=== PATIENT | female | born 1980 | race Caucasian/White ===

== ENCOUNTER 2023-01-05 16:08 | Emergency (ER) | payer MEDICAID, SELFPAY ==
[2023-01-05 16:09] VITALS: BP 117/92; PULSE 96; RESP 18; TEMP 36.6; O2SAT 100; BMI 25.1
--- NOTE | 2023-01-05 16:56 | EX.ED.DYSGE1 ---
HPI History of Present Illness Chief Complaint: Edema Informant: patient Narrative Narrative: Increasing facial swelling right lateral lip since yesterday. [place] a balm she is try manipulate throughout the day. There was yellow crusting and clear drainage. No fevers. She is currently staying at [facility] for the past month. States felt feverish yesterday. Denies IV drug use. Intermittent recreational drug use. Denies history of diabetes. [facility] Medical History (Updated 01/05/23 @ 18:[address] Julio Cesar Dunlap DO) Arthritis PTSD (post-traumatic stress disorder) Home Medications amoxicillin 875 mg-potassium clavulanate 125 mg tablet 875 mg PO Q12H #20 TABLETS 01/05/23 [Rx Last Taken Unknown] ibuprofen 600 mg tablet 600 mg PO Q6H PRN PRN pain #20 TABLETS 01/05/23 [Rx Last Taken Unknown] Allergy/AdvReac Type Severity Reaction Status Date / Time lactose Allergy Upset Verified 01/05/23 16:08 Stomach Social History Smoking Status: Current every day smoker tobacco type: cigarettes ROS ROS ED Constitutional Constitutional ED: Denies chills, fever(s) or sweats Eyes Eyes: Denies change in vision ENT ENT ED: Denies dysphagia or sore throat Cardiovascular Cardiovascular: Denies chest pain, leg edema, palpitations or racing heartbeat Respiratory/Chest Respiratory/Chest: Denies cough, dyspnea or dyspnea on exertion Gastrointestinal Gastrointestinal: Denies abdominal pain, diarrhea, nausea or vomiting Genitourinary Genitourinary ED: Denies dysuria, hematuria or urinary frequency Musculoskeletal Musculoskeletal: Denies back pain, extremity pain or neck pain Integumentary Reports abscess and wounds; Denies rash Neurologic Neurologic: Denies headache(s), paresthesias or weakness EXAM Physical Exam Const Vital Signs: 01/05/23 16:09 Temperature 97.8 F Temperature Source Temporal Pulse Rate 96 Respiratory Rate 18 Blood Pressure 117/92 H Blood Pressure Mean 100 Pulse Ox 100 Oxygen Delivery Method Room Air Positive well nourished and well developed General Appearance ED: well developed and NAD HEENT Reports moist mucous membranes HEENT Narrative: Facial right lateral lip 3 cm fluctuance with scabbing the middle this extends to the right lower lip with slight fluctuance in that area. There is no active drainage. No submental lymphadenopathy. normocephalic Eyes PERRL, EOMs intact bilaterally and conjunctivae normal General Eye ED: Yes normal appearance of both eyes Neck no lymphadenopathy and supple General: Negative for tenderness Chest Wall Chest: Negative for tenderness Resp normal respiratory effort and normal air movement Effort and Inspection: symmetric chest movement; Negative for respiratory distress Cardio regular rate, regular rhythm and no murmurs Peripheral Pulses: pulses 2+ throughout GI normal to inspection, nondistended, normoactive bowel sounds and non-tender Palpation: Negative for guarding or rebound tenderness present Back/Spine no CVA tenderness and no thoracic nor lumbar tenderness Extremity normal to inspection General Extremety ED: Negative for edema or tenderness General Extremity: Negative for edema Neuro oriented x3 and no sensory deficits noted Sensorium / Orientation: awake and alert Skin no rashes or lesions noted and no wounds MDM MDM MDM Narrative Medical decision making narrative: Interventions / MDM: Differential diagnosis: Facial cellulitis, impetigo, abscess Diagnosis considered but do not suspect: N/A My EKG interpretation: N/A Imaging independently reviewed and interpreted by myself: N/A External documents reviewed: N/A Test considered but not ordered:N/A ED course: Patient afebrile vital stable. Progressive swelling on the facial region area of scabbing yellow in nature concerning for impetigo that is progressed. She had fluctuance that is palpated. Due to the location, discussed with patient needle aspiration to help create tract to help with drainage. She agreed. Performed sterile conditions. 2 punctures performed, there is no exudative aspirated. She was covered with Augmentin. Also prescription for ibuprofen was written. Strict return precautions discussed. Outpatient follow-up given. All questions were answered. Re-evaluation: stable Disposition discussed with patient/family/significant other: Patient Case discussed with consulting clinician: N/A Procedure note: Verbal consent. Normal sterile conditions. Skin prepped with alcohol pads. A total of 3 cc lidocaine 2% used for local analgesia the wound lateral to the lip along with inferior to the lip. Betadine prep of the skin. 18-gauge needle entered at the scab lateral to the lip. Directions at 1210 and 8 o'clock position. There is no aspirates obtained. Additional puncture inferior right lower lip at 3:00 and 5 o'clock position, bloody drainage noted. No exudates. Hemostasis achieved with pressure. Patient tolerated procedure well. Discharge Plan Triage Chief Complaint: Edema ED Provider: Julio Cesar Dunlap Dx/Rx/DC Orders Clinical Impression: Cellulitis of face, Impetigo Instructions: Understanding Impetigo, ED Cellulitis, Facial Prescriptions: New ibuprofen 600 mg tablet 600 mg PO Q6H PRN PRN (Reason: pain) Qty: 20 0RF amoxicillin-pot clavulanate [amoxicillin-pot clavulanate] 875-125 mg tablet 875 mg PO Q12H Qty: 20 0RF Referrals: Noelle Islas [Non-Staff] - 1 Week Activity Restrictions/Additional Instructions: Take medications as prescribed. Return if any worsening symptoms. Disposition Disposition: Home, Self Care Discharge Date/Time: 01/05/23 18:32
[2023-01-05] MEDS: Amox/Clavulanate 875 MG Tablet PO (17:52)
[2023-01-05] MEDS: Lidocaine 2% (20 ml mdv) 20 ML Vial INFILT (18:24)
--- NOTE | 2023-01-05 18:24 | ED.RN ---
Pt states she is unable to get her prescriptions during this visit because she didn't bring any form of payment and does not have any family here with her. RN explained importance of getting and completing antibiotic and provided her with pharmacy hours for worm picker tomorrow. patient agreeable.
== END 2023-01-05 18:32 | disposition home or self-care (01) ==
PROVIDERS: Emergency Provider Emergency Medicine; Visit Provider Emergency Medicine
DX: L03.211 Cellulitis of face (principal); L01.00 Impetigo, unspecified; F17.210 Nicotine dependence, cigarettes, uncomplicated
CPT/HCPCS: J7030; 99284

== ENCOUNTER 2023-03-24 12:51 | Emergency (ER) | payer MEDICAID, SELFPAY ==
[2023-03-24 12:51] VITALS: BP 87/49; PULSE 58; RESP 18; O2SAT 99
[2023-03-24] MEDS: 0.9% Normal Saline 1,000 ML 1000 ML IV ×2 (12:51→15:27)
[2023-03-24 12:52] VITALS: TEMP 36.5; BMI 28.2
--- NOTE | 2023-03-24 13:09 | NURSING ---
NO OLD EKGS
--- NOTE | 2023-03-24 13:12 | ED.RN ---
ATTEMPTED TO CALL ELISSA HERNANDEZ AT [phone] BUT NO ANSWER
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
--- NOTE | 2023-03-24 13:22 | CT_ITS ---
STUDY: CT BRAIN WITHOUT CONTRAST REASON FOR EXAM: Female, 42 years old. Head trauma with incontinence RADIATION DOSAGE (If Supplied By Facility): CTDIvol = ( 44.99 ) mGy, DLP = ( 812.98 ) mGycm TECHNIQUE: Transaxial CT imaging of the brain was performed without administration of intravenous contrast material. Individualized dose optimization techniques were used for this CT. COMPARISON: No relevant priors. FINDINGS: Normal soft tissue structures. Normal calvarium. Normal size ventricles and extra-axial spaces for the patient''s age. Normal white matter tracts of the cerebral hemispheres. Normal basal ganglia and thalami. Normal brainstem. Normal cerebellum. There is no intracranial hemorrhage. There are no findings of an acute ischemic infarction. Minimal mucosal thickening of the left maxillary sinus. CT/Brain/Head without Contrast IMPRESSION: Normal unenhanced CT scan of the brain. Electronically Signed: Emiliano Branch MD at 14:14 EDT ,
--- NOTE | 2023-03-24 13:22 | CT_ITS ---
STUDY: CTA CHEST REASON FOR EXAM: Female, 42 years old. Syncope with cyanosis RADIATION DOSAGE (If Supplied By Facility): CTDIvol = ( 11.6 ) mGy, DLP = ( 1274.9 ) mGycm TECHNIQUE: The examination was performed with the intravenous administration of IV 100mL [id number]-370. Post-processing of the angiographic images was performed, with multiplanar reformation and 3D reconstruction. Individualized dose optimization techniques were used for this CT. COMPARISON: None. FINDINGS: Normal enhancement of the main pulmonary artery and right and left pulmonary arteries. Normal enhancement of the bilateral peripheral pulmonary arteries. There is no demonstrated pulmonary embolism. Normal thoracic aorta and visualized great vessels. There is no demonstrated aortic dissection. Normal heart and pericardium. Normal mediastinum. Normal hilar regions. Normal visualized trachea and bronchi. The lungs are well expanded. Normal pulmonary parenchyma. Normal pleura. Normal chest wall structures. There are mild degenerative changes of thoracic spine. Tiny nonobstructive calculi seen in both upper poles of the kidneys. CT/CTA Chest W/WO Contrast IMPRESSION: Normal CTA chest examination, without a demonstrated pulmonary embolism or arterial dissection. Electronically Signed: Emiliano Branch MD at 14:20 EDT ,
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
[2023-03-24 13:25] LABS: Absolute Lymphocyte Count 2.03 X10^3/uL (0.83-4.51); Absolute Neutrophil Count 3.6 X10^3/uL (2.0-7.7); Basophil# 0.07 X10^3/uL; Basophil% 1.1 % (0-1); Eosinophil# 0.04 X10^3/uL; Eosinophils% 0.6 % (0-5); Hematocrit 41.5 % (37-47); Hemoglobin 13.9 g/dL (12.0-15.0); Lymphocyte # 2.03 X10^3/ul (0.83-4.51); Lymphocyte % 32.5 % (19-41); Mean Corp Hgb Conc 33.5 g/dL (32-36); Mean Corpuscular Hgb 31.4 pg (27.0-32.0); Mean Corpuscular Volume 93.9 fL (81-99); Mean Platelet Vol. 10.9 fl (6.2-12.0); Monocyte# 0.44 X10^3/uL; Monocyte% 7.1 % (0-10); NRBC Flagged by Analyzer 0 % (0-5); Neutrophil # 3.63 X10^3/uL (2.7-7.7); Neutrophil % 58.2 % (47-70); Platelet Count 266 K/mm3 (150-450); RBC Distribution Width CV 14.9 % (11.6-14.6); RBC Distribution Width SD 51.6 fl (35.1-43.9); Red Blood Count 4.42 M/mm3 (4.2-5.4); White Blood Count 6.2 K/mm3 (4.4-11.0)
[2023-03-24 13:41] LABS: Anion Gap 10 (5-15); BUN 13 mg/dL (7-18); BUN/Creat Ratio 11.7 RATIO (10-20); Calcium,Total 8.9 mg/dL (8.5-10.1); Chloride 114 mmol/L (98-107); Creatinine, Serum 1.11 mg/dL (0.55-1.02); EST Glomerular Filtration Rate 57 mL/min (>60); Est Glom Filt Rate - Afr Amer 69 mL/min (>60); Estimated Creatinine Clearance 67.59 ml/min; Glucose 125 mg/dL (74-106); Sodium Level 141 mmol/L (136-145)
[2023-03-24 14:13] VITALS: BP 101/70; PULSE 66; RESP 20; O2SAT 100
[2023-03-24 16:16] VITALS: BP 106/74; BP 106/84; BP 95/59; PULSE 70; PULSE 95
[2023-03-24 16:49] VITALS: BP 111/78
== END 2023-03-24 16:50 | disposition home or self-care (01) ==
PROVIDERS: Emergency Provider Emergency Medicine; Visit Provider Emergency Medicine
DX: R55 Syncope and collapse (principal); S09.90XA Unspecified injury of head, initial encounter; I95.9 Hypotension, unspecified; R00.1 Bradycardia, unspecified; W10.9XXA Fall (on) (from) unspecified stairs and steps, initial encounter
CPT/HCPCS: 70450; 71275; 80048; 85025; 93005; 96360; 96361; 99285; J7030; Q9967

== ENCOUNTER 2023-05-14 14:38 | Emergency (ER) | payer MEDICAID, SELFPAY ==
[2023-05-14] VITALS (11 sets, daily range): BP systolic 89–107; BP diastolic 58–71; PULSE 64–76; RESP 15–26; TEMP 35.9; O2SAT 92–100; BMI 27.8
--- NOTE | 2023-05-14 15:03 | EX.ED.DYSGE1 ---
HPI History of Present Illness Chief Complaint: Overdose Detail of Chief Complaint: Ingestion Informant: patient Narrative Narrative: Patient presents after drug ingestion. She states she found her girlfriend with some preethi. She was upset and took a bag of drugs from his supply and snorted it. She is not sure what the drug is. She believes this occurred about an hour ago. She states she does not know who called EMS and has not remember anything until squad arrived. At this time she is complaining only of being thirsty. She admits to occasional alcohol use but none today. She does admit to meth use a couple days ago. Nursing staff did update me that EMS did give her Narcan. I did review the EMS note. Patient reportedly was apneic but had a strong pulse. She had been given 2 mg of Narcan nasally by police followed by 2 mg of Narcan nasally by EMS. She was bagged until IV was established and patient given IV Narcan. Following this she did awake and was able to answer questions. Patient denies that this was an attempt to harm herself. She states she was just upset but had no intention of hurting herself. [facility] Medical History Anxiety Arthritis PTSD (post-traumatic stress disorder) Home Medications amoxicillin 875 mg-potassium clavulanate 125 mg tablet 875 mg PO Q12H #20 TABLETS 01/05/23 [Rx Last Taken Unknown] ibuprofen 600 mg tablet 600 mg PO Q6H PRN PRN pain #20 TABLETS 01/05/23 [Rx Last Taken Unknown] Allergy/AdvReac Type Severity Reaction Status Date / Time lactose Allergy Upset Verified 05/14/23 14:39 Stomach Surgical History H/O foot surgery Social History (Updated 05/14/23 @ 15:[address] Lexy Carlisle MD) household members: significant other Smoking Status: Current every day smoker tobacco type: cigarettes details: Not recently. substance use type: marijuana and methamphetamine ROS ROS ED Constitutional Constitutional ED: Denies chills or fever(s) Eyes Eyes: Denies change in vision or discharge from eye(s) ENT ENT ED: Denies discharge from eye(s), rhinorrhea or sore throat Cardiovascular Cardiovascular: Denies chest pain or palpitations Respiratory/Chest Respiratory/Chest: Denies cough or dyspnea Gastrointestinal Gastrointestinal: Denies abdominal pain, nausea or vomiting Genitourinary Genitourinary ED: Denies dysuria Musculoskeletal Musculoskeletal: Denies back pain or extremity pain Integumentary Denies Abrasions or rash Neurologic Neurologic: Denies headache(s) or weakness Psychiatric Psychiatric: Reports anxiety; Denies depression Allergic/Immunologic Allergic/Immunologic ED: Denies lip swelling or urticaria EXAM Physical Exam Const Vital Signs: 05/14/23 14:41 05/14/23 16:45 05/14/23 17:15 Temperature 96.7 F L Temperature Source Temporal Pulse Rate 74 76 64 Respiratory Rate 19 H 21 H 26 H Blood Pressure 107/71 100/61 89/60 L Blood Pressure Mean 83 74 69 Pulse Ox 100 99 95 Oxygen Delivery Method Room Air 05/14/23 17:30 05/14/23 17:45 05/14/23 18:00 Temperature Temperature Source Pulse Rate 65 64 Respiratory Rate 24 H 26 H Blood Pressure 92/61 91/58 L 91/60 Blood Pressure Mean 71 69 70 Pulse Ox 94 93 Oxygen Delivery Method 05/14/23 18:15 05/14/23 20:44 05/14/23 21:25 Temperature Temperature Source Pulse Rate 66 Respiratory Rate 20 H Blood Pressure 94/59 L 97/67 94/62 Blood Pressure Mean 70 77 72 Pulse Ox 92 Oxygen Delivery Method Room Air Positive well nourished and well developed General Appearance ED: well developed HEENT HEENT Narrative: A few facial abrasions noted consistent with skin picking. No sign of secondary infection. Eyes PERRL and EOMs intact bilaterally Chest Wall inspection of chest normal and palpation of chest normal Resp normal respiratory effort and clear to auscultation bilaterally Cardio regular rate and regular rhythm GI non-tender Palpation: soft Extremity normal to inspection Neuro oriented x3 Neuro Narrative: No focal neurologic deficits. Psych Mood & Affect: depressed Skin Skin Narrative: Few scattered skin scabbed wounds noted from picking. No sign of secondary infection. No cellulitis or abscess. MDM MDM MDM Narrative Medical decision making narrative: Patient placed on telemetry monitor. EKG obtained to evaluate for cardiac arrhythmia/ischemia. Labwork obtained to evaluate for leukocytosis, anemia, and electrolyte derangement. Urinalysis obtained to evaluate for infection/hematuria. Urine tox screen obtained. Patient is given IV fluids. Lab Data Attestation: I reviewed the patient's lab results. Labs: Laboratory Results - last 24 hr 05/14/23 05/14/23 05/14/23 15:25 15:25 15:25 WBC 25.5 H RBC 4.21 Hgb 13.5 Hct 40.9 MCV 97.1 MCH 32.1 H MCHC 33.0 RDW Std Deviation 45.5 H RDW Coeff of Grace 12.7 Plt Count 245 MPV 10.1 Immature Gran % (Auto) 1.100 H Neut % (Auto) 92.1 H Lymph % (Auto) 2.6 L [place] % (Auto) 3.7 Eos % (Auto) 0.2 Baso % (Auto) 0.3 Absolute Neuts (auto) 23.5 H Absolute Lymphs (auto) 0.67 L Nucleated RBC % 0 Differential Comment SCANNED Sodium 139 Potassium 4.9 Chloride 111 H Carbon Dioxide 22.0 Anion Gap 6 BUN 17 Creatinine 1.30 H Estim Creat Clear Calc 57.71 Est GFR (MDRD) Af Amer 57 L Est GFR (MDRD) Non-Af 47 L BUN/Creatinine Ratio 13.1 Glucose 224 H Lactic Acid Calcium 8.4 L Total Bilirubin 0.40 Direct Bilirubin 0.16 AST 43 H ALT 32 Alkaline Phosphatase 61 Total Protein 7.5 Albumin 3.8 Globulin 3.7 Serum , Qual Urine Color Urine Clarity Urine pH Ur Specific [place] Urine Protein Urine Glucose (UA) Urine Ketones Urine Occult Blood Urine Nitrite Urine Bilirubin Urine Urobilinogen Ur Leukocyte Esterase Urine RBC Urine WBC Ur Squamous Epith Cells Urine Bacteria Hyaline Casts Urine Mucus Urine Opiates Screen Urine Methadone Screen Ur Barbiturates Screen Ur Phencyclidine Scrn Ur Amphetamines Screen MDMA (Ecstasy) Screen U Benzodiazepines Scrn Urine Cocaine Screen U Cannabinoids Screen Ur Drug Screen Comment Ethyl Alcohol 7.0 05/14/23 05/14/23 05/14/23 15:55 18:45 18:45 WBC RBC Hgb Hct MCV MCH MCHC RDW Std Deviation RDW Coeff of Grace Plt Count MPV Immature Gran % (Auto) Neut % (Auto) Lymph % (Auto) [place] % (Auto) Eos % (Auto) Baso % (Auto) Absolute Neuts (auto) Absolute Lymphs (auto) Nucleated RBC % Differential Comment Sodium Potassium Chloride Carbon Dioxide Anion Gap BUN Creatinine Estim Creat Clear Calc Est GFR (MDRD) Af Amer Est GFR (MDRD) Non-Af BUN/Creatinine Ratio Glucose Lactic Acid Calcium Total Bilirubin Direct Bilirubin AST ALT Alkaline Phosphatase Total Protein Albumin Globulin Serum , Qual NEGATIVE Urine Color Yellow Urine Clarity Sl. Cloudy Urine pH 5.0 Ur Specific [place] 1.025 Urine Protein 30 H Urine Glucose (UA) 250 H Urine Ketones 5 H Urine Occult Blood 10 H Urine Nitrite Negative Urine Bilirubin Negative Urine Urobilinogen 1 H Ur Leukocyte Esterase 25 H Urine RBC 0 SEEN Urine WBC 0-5 SEEN Ur Squamous Epith Cells 5-10 SEEN Urine Bacteria 0 SEEN Hyaline Casts 10-25 SEEN Urine Mucus 1+ Urine Opiates Screen NEGATIVE Urine Methadone Screen NEGATIVE Ur Barbiturates Screen NEGATIVE Ur Phencyclidine Scrn NEGATIVE Ur Amphetamines Screen POSITIVE H MDMA (Ecstasy) Screen NEGATIVE U Benzodiazepines Scrn NEGATIVE Urine Cocaine Screen NEGATIVE U Cannabinoids Screen POSITIVE H Ur Drug Screen Comment Ethyl Alcohol 05/14/23 05/14/23 21:25 21:25 WBC 17.4 H RBC 3.78 L Hgb 12.0 Hct 36.4 L MCV 96.3 MCH 31.7 MCHC 33.0 RDW Std Deviation 45.2 H RDW Coeff of Grace 12.7 Plt Count 233 MPV 10.2 Immature Gran % (Auto) 0.600 Neut % (Auto) 92.3 H Lymph % (Auto) 4.0 L [place] % (Auto) 2.9 Eos % (Auto) 0.0 Baso % (Auto) 0.2 Absolute Neuts (auto) 16.1 H Absolute Lymphs (auto) 0.69 L Nucleated RBC % 0 Differential Comment Sodium Potassium Chloride Carbon Dioxide Anion Gap BUN Creatinine Estim Creat Clear Calc Est GFR (MDRD) Af Amer Est GFR (MDRD) Non-Af BUN/Creatinine Ratio Glucose Lactic Acid 0.6 Calcium Total Bilirubin Direct Bilirubin AST ALT Alkaline Phosphatase Total Protein Albumin Globulin Serum , Qual Urine Color Urine Clarity Urine pH Ur Specific [place] Urine Protein Urine Glucose (UA) Urine Ketones Urine Occult Blood Urine Nitrite Urine Bilirubin Urine Urobilinogen Ur Leukocyte Esterase Urine RBC Urine WBC Ur Squamous Epith Cells Urine Bacteria Hyaline Casts Urine Mucus Urine Opiates Screen Urine Methadone Screen Ur Barbiturates Screen Ur Phencyclidine Scrn Ur Amphetamines Screen MDMA (Ecstasy) Screen U Benzodiazepines Scrn Urine Cocaine Screen U Cannabinoids Screen Ur Drug Screen Comment Ethyl Alcohol EKG Initial EKG: Attestation: I personally reviewed and interpreted this EKG as follows: Interpretation: Sinus Rhythm (Sinus at 70 with no acute ischemia. QTc is 488.) Treatment and Re-Evaluation :: White blood cell count elevated at 25.5 with 92% neutrophils. Hemoglobin normal at 13.5. Chemistry studies remarkable only for a creatinine of 1.3. Her glucose is 224. LFTs significant for an AST of 43, otherwise values are normal. test is negative. Urinalysis reveals 10-25 casts with no sign of infection. Urine tox screen is positive for amphetamines as well as cannabinoids. Patient's blood pressure remained in the 80s and 90s systolic. She is not tachycardic. Although she tells me that she normally has a normal blood pressure, on review of records her blood pressure has been in the 80s and 90s her last couple visits. After receiving IV fluids a repeat CBC is obtained along with a lactic acid. White count is now 17.4 with a hemoglobin of 12. Lactic acid is normal at 0.6. Patient is able to get up and ambulate in the emergency room. She does report some slight dizziness when she ambulates. At this point she has been observed for over 7 hours and I do feel it is safe for discharge. Return instructions were provided. Patient encouraged to avoid any drug use and push p.o. fluids. Discharge Plan Triage Chief Complaint: Overdose ED Provider: Lexy Carlisle Dx/Rx/DC Orders Clinical Impression: Acute drug overdose Instructions: ED Overdose, Opiate Prescriptions: No Action ibuprofen 600 mg tablet 600 mg PO Q6H PRN PRN (Reason: pain) Qty: 20 0RF amoxicillin-pot clavulanate [amoxicillin-pot clavulanate] 875-125 mg tablet 875 mg PO Q12H Qty: 20 0RF Primary Care Provider: ALIX READ Referrals: ALIX READ [Other] - 5-7 Days Care Physician,No Primary [Non-Staff] - [facility] [Non-Staff] - As Needed Disposition Disposition: Home, Self Care
[2023-05-14] MEDS: 0.9% Normal Saline 1,000 ML 150 ML IV (15:22)
[2023-05-14 15:34] LABS: Absolute Lymphocyte Count 0.67 X10^3/uL (0.83-4.51); Absolute Neutrophil Count 23.5 X10^3/uL (2.0-7.7); Basophil# 0.08 X10^3/uL; Basophil% 0.3 % (0-1); Eosinophil# 0.05 X10^3/uL; Eosinophils% 0.2 % (0-5); Hematocrit 40.9 % (37-47); Hemoglobin 13.5 g/dL (12.0-15.0); Lymphocyte # 0.67 X10^3/ul (0.83-4.51); Lymphocyte % 2.6 % (19-41); Mean Corpuscular Hgb 32.1 pg (27.0-32.0); Mean Corpuscular Volume 97.1 fL (81-99); Mean Platelet Vol. 10.1 fl (6.2-12.0); Monocyte# 0.94 X10^3/uL; Monocyte% 3.7 % (0-10); NRBC Flagged by Analyzer 0 % (0-5); Neutrophil # 23.45 X10^3/uL (2.7-7.7); Neutrophil % 92.1 % (47-70); POSITIVE DIFFERENTIAL YES; Platelet Count 245 K/mm3 (150-450); RBC Distribution Width CV 12.7 % (11.6-14.6); RBC Distribution Width SD 45.5 fl (35.1-43.9); Red Blood Count 4.21 M/mm3 (4.2-5.4); White Blood Count 25.5 K/mm3 (4.4-11.0)
[2023-05-14 15:51] LABS: AST(SGOT) 43 U/L (15-37); Alanine Aminotransfer ALT/SGPT 32 U/L (13-56); Albumin, Serum 3.8 g/dL (3.2-5.0); Alkaline Phosphatase 61 U/L (45-117); Anion Gap 6 (5-15); BUN 17 mg/dL (7-18); BUN/Creat Ratio 13.1 RATIO (10-20); Bilirubin, Direct 0.16 mg/dL (0.00-0.30); Calcium,Total 8.4 mg/dL (8.5-10.1); Chloride 111 mmol/L (98-107); EST Glomerular Filtration Rate 47 mL/min (>60); Est Glom Filt Rate - Afr Amer 57 mL/min (>60); Estimated Creatinine Clearance 57.71 ml/min; Globulin 3.7 g/dL (2.2-4.2); Glucose 224 mg/dL (74-106); Potassium 4.9 mmol/L (3.5-5.1); Protein, Total 7.5 g/dL (6.4-8.2); Sodium Level 139 mmol/L (136-145)
[2023-05-14 15:59] LABS: Differential Indicated SCAN CRITERIA MET
[2023-05-14 16:22] LABS: Differential Comment SCANNED
[2023-05-14 16:36] LABS: Internal QC Validated? YES +Cl - CLEAR BKGD; Pregnancy, Serum, hCG Quali. NEGATIVE Negative
[2023-05-14 18:52] LABS: Bacteria 0 SEEN /hpf (None Seen); Red Blood Cells-Urine 0 SEEN /hpf (0-5)
[2023-05-14 19:06] LABS: Color, Urine Yellow (Yellow); Glucose, Dipstick 250 mg/dl (Normal); Ketone-Dipstick 5 mg/dl (Negative); Leukocyte Esterase-Dipstick 25 /ul (Negative); Nitrite-Dipstick Negative (Negative); Occult Blood-Urine 10 /ul (Negative); Protein-Dipstick 30 mg/dl (Negative); Specific Gravity, Urine 1.025 (1.002-1.030); Urine Bilirubin Dipstick Negative (Negative); Urine Clarity Sl. Cloudy (Clear); Urine Urobilinogen 1 mg/dl (Normal)
[2023-05-14 19:19] LABS: Hyaline Cast 10-25 SEEN /lpf (0-5); Mucous, Urine 1+ /hpf (<or=2+); Squamous Epithelial Cells - UA 5-10 SEEN /hpf (5-10); White Blood Cells 0-5 SEEN /hpf (0-5)
[2023-05-14] MEDS: 0.9% Normal Saline 1,000 ML 999 ML IV (19:39)
[2023-05-14 19:41] LABS: Amphetamine Urine VISTA POSITIVE (<1000 ng/mL); Barbiturate Urine VISTA NEGATIVE (< 200 ng/mL); Benzodiazepine Urine VISTA NEGATIVE (< 200 ng/mL); Cocaine Urine VISTA NEGATIVE (< 300 ng/mL); Ecstacy Urine VISTA NEGATIVE (< 500 ng/mL); Methadone Urine VISTA NEGATIVE (< 300 ng/mL); PCP Urine VISTA NEGATIVE (< 25 ng/mL); THC Urine VISTA POSITIVE (< 50 ng/mL); Vista UDS pH Range 4
[2023-05-14 21:32] LABS: Absolute Lymphocyte Count 0.69 X10^3/uL (0.83-4.51); Absolute Neutrophil Count 16.1 X10^3/uL (2.0-7.7); Basophil# 0.04 X10^3/uL; Basophil% 0.2 % (0-1); Hematocrit 36.4 % (37-47); Lymphocyte # 0.69 X10^3/ul (0.83-4.51); Mean Corpuscular Hgb 31.7 pg (27.0-32.0); Mean Corpuscular Volume 96.3 fL (81-99); Mean Platelet Vol. 10.2 fl (6.2-12.0); Monocyte% 2.9 % (0-10); NRBC Flagged by Analyzer 0 % (0-5); Neutrophil # 16.11 X10^3/uL (2.7-7.7); Neutrophil % 92.3 % (47-70); Platelet Count 233 K/mm3 (150-450); RBC Distribution Width CV 12.7 % (11.6-14.6); RBC Distribution Width SD 45.2 fl (35.1-43.9); Red Blood Count 3.78 M/mm3 (4.2-5.4); White Blood Count 17.4 K/mm3 (4.4-11.0)
[2023-05-14 22:01] LABS: Lactic Acid 0.6 mmol/L (0.4-1.9)
== END 2023-05-14 23:03 | disposition home or self-care (01) ==
PROVIDERS: Emergency Provider Emergency Medicine; Visit Provider Emergency Medicine
DX: T65.892A Toxic effect of other specified substances, intentional self-harm, initial encounter (principal); F17.210 Nicotine dependence, cigarettes, uncomplicated; F12.90 Cannabis use, unspecified, uncomplicated
CPT/HCPCS: 80048; 80076; 80307; 81001; 82077; 83605; 84703; 85025; 93005; 96360; 96361; 99285; J7030; A4216

== ENCOUNTER 2023-06-22 10:39 | Emergency (ER) | payer MEDICAID, SELFPAY ==
[2023-06-22 10:40] VITALS: BP 122/83; PULSE 57; RESP 14; TEMP 36.6; O2SAT 100; BMI 28.0
--- NOTE | 2023-06-22 11:05 | RAD_ITS ---
STUDY: X-RAY - LEFT FOOT CLINICAL: Female, 42 years old. Stepped on foreign body. Abrasions overlying the second and third metatarsals. TECHNIQUE: 3 view(s) of the foot. COMPARISON: None. FINDINGS: There is a plantar calcaneal spur. Normal visualized subtalar, talonavicular, calcaneocuboid, tarsal and tarsometatarsal articulations. Normal metatarsi. Normal metatarsophalangeal joint of the great toe. There is a bipartite tibial sesamoid. Normal interphalangeal joint of the great toe. Normal phalanges of the great toe. Normal second through fifth metatarsophalangeal joints. Normal interphalangeal joints and phalanges of the lesser toes. No radiopaque foreign body is seen. RAD/Foot min 3 Views IMPRESSION: Small plantar spur. No acute abnormality is seen. Electronically Signed: Emiliano Branch MD at 12:21 EDT ,
--- NOTE | 2023-06-22 11:16 | ED.VIS.LOWEX ---
HPI History of Present Illness Chief Complaint: Lower Extremity Injury Informant: patient Narrative Narrative: Patient is a 42-year-old female presenting with left foot injury. Patient states she was wearing socks when she stepped on a bolt yesterday. It did cut the bottom of her foot. She had pain and it hard for her to ambulate. She came via EMS with her partner who is also being evaluated for another complaint. Patient states she took 3 pain reliever which is [id number] [employer] medication is not sure what it actually was this morning. She is unsure when her last tetanus was. She states that [place] and is pretty dirty so she is concerned about tetanus. 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 Denies any numbness or tingling. [place] any fever or chills. No other complaints at this time Tetanus Immunization: Unknown [facility] Medical History Anxiety Arthritis PTSD (post-traumatic stress disorder) Home Medications amoxicillin 875 mg-potassium clavulanate 125 mg tablet 875 mg (0.875 x 875-125 mg) PO Q12H #20 TABLETS 01/05/23 [Rx Last Taken Unknown] ibuprofen 600 mg tablet 600 mg PO Q6H PRN PRN pain #20 TABLETS 01/05/23 [Rx Last Taken Unknown] bacitracin 500 unit/gram topical ointment 1 applic topical TID 7 days #14 grams 06/22/23 [Rx Last Taken Unknown] Allergy/AdvReac Type Severity Reaction Status Date / Time lactose Allergy Upset Verified 06/22/23 10:39 Stomach Surgical History H/O foot surgery Social History household members: significant other Smoking Status: Current every day smoker tobacco type: cigarettes details: Not recently. substance use type: marijuana and methamphetamine ROS ROS ED Constitutional Constitutional ED: Denies chills or fever(s) Respiratory/Chest Respiratory/Chest: Denies cough Gastrointestinal Gastrointestinal: Denies nausea or vomiting Musculoskeletal Musculoskeletal: Reports other Details: left foot pain Integumentary Reports other Details: Left foot wound Neurologic Neurologic: Denies headache(s), paresthesias or weakness Psychiatric Psychiatric: Denies anxiety Hematologic/Lymphatic Hematologic/Lymphatic: Denies easy bleeding or easy bruising EXAM Physical Exam Const Vital Signs: 06/22/23 10:40 Temperature 97.8 F Temperature Source Temporal Pulse Rate 57 L Respiratory Rate 14 Blood Pressure 122/83 H Blood Pressure Mean 96 Pulse Ox 100 Oxygen Delivery Method Room Air Positive well nourished and well developed General Appearance ED: well developed and NAD HEENT Reports moist mucous membranes Neck full ROM Chest Wall inspection of chest normal Resp normal respiratory effort and clear to auscultation bilaterally Cardio regular rate and regular rhythm Cardio Narrative: 2+ DP pulses Extremity normal to inspection and full ROM Extremity Narrative: No deformity, tenderness to palpation of the plantar aspect of the second and third MTP (underlying superficial abrasion) Neuro oriented x3, moves all extremities and no sensory deficits noted Sensorium / Orientation: alert Motor Exam: strength 5/5 throughout; Negative for general weakness Psych mental status grossly normal Skin Skin Narrative: 1 cm partial-thickness healing laceration of the dorsal aspect of the foot just proximal to the second/third toes. No active bleeding, drainage or cellulitic changes. MDM MDM MDM Narrative Medical decision making narrative: Evaluated for injury to the base of her left foot. She has a an associated abrasion it does appear to be partial-thickness however it is not amenable to suture repair as has been there for too long. It is not particularly gaping. Does not appear infected. Do not think requires antibiotics at this time. X-rays performed to rule out any underlying fracture or foreign body. This is negative on my interpretation as well as radiology. She does have a small plantar spur however this not why she is here. Physical exam is not consistent for puncture wound even though she did stepped on a bolt. Localized wound care with bacitracin dressing applied. Patient given wound care instructions. Is given podiatry for outpatient follow-up. Given return precautions. Is given a postop shoe. Patient verbalized agreement understands plan. Discharged home in stable condition. Radiography Diagnostic Testing: Clinical Impression(s) from Imaging Studies Foot X-Ray 06/22/23 11:05 IMPRESSION: Small plantar spur. No acute abnormality is seen. Electronically Signed: Emiliano Branch MD at 12:21 EDT , Discharge Plan Triage Chief Complaint: Lower Extremity Injury ED Provider: Renetta Hernandez Dx/Rx/DC Orders Clinical Impression: Need for Tdap vaccination, Injury of foot, right, superficial Instructions: ED Abrasion, ED Foot Contusion Prescriptions: New bacitracin 500 unit/gram ointment 1 applic topical TID 7 Days Qty: 14 0RF No Action ibuprofen 600 mg tablet 600 mg PO Q6H PRN PRN (Reason: pain) Qty: 20 0RF amoxicillin-pot clavulanate [amoxicillin-pot clavulanate] 875-125 mg tablet 875 mg PO Q12H Qty: 20 0RF Primary Care Provider: ALIX READ Referrals: ALIX READ [Other] Doc Cox DPM [Med Staff - Active Staff] - 2 Days for wound check Activity Restrictions/Additional Instructions: Apply antibiotic as prescribed. Follow-up with podiatry. Return the if you have progression or worsening of symptoms. Watch for signs of infection and if you do develop these please return to the emergency room. Disposition Disposition: Home, Self Care
[2023-06-22] MEDS: Diphth,Pertuss(Acell),Tet Vac 0.5 ML Vial IM (12:37)
[2023-06-22] MEDS: BACITRACIN 15 GM Tube 1 APPLIC TOPICAL (13:37)
== END 2023-06-22 13:37 | disposition home or self-care (01) ==
PROVIDERS: Emergency Provider Emergency Medicine; Visit Provider Emergency Medicine
DX: S91.312A Laceration without foreign body, left foot, initial encounter (principal); W26.8XXA Contact with other sharp object(s), not elsewhere classified, initial encounter; F17.210 Nicotine dependence, cigarettes, uncomplicated; Z23 Encounter for immunization
CPT/HCPCS: 73630; 90715; 99285

== ENCOUNTER 2023-12-18 14:03 | Emergency (ER) | payer MEDICAID, SELFPAY ==
[2023-12-18 14:04] VITALS: BP 102/67; PULSE 59; RESP 18; TEMP 35.9; O2SAT 100; BMI 23.3
--- NOTE | 2023-12-18 14:24 | RAD_ITS ---
INDICATION: chest pain EXAMINATION/TECHNIQUE: X-RAY - XR Chest 1 View COMPARISON: No relevant prior comparison study available FINDINGS: LINES/DEVICES: None. LUNGS: No consolidation, edema or effusion. No pneumothorax. MEDIASTINUM AND CARDIOVASCULAR STRUCTURES: Cardiac silhouette not enlarged. Central airways and mediastinal contour are unremarkable. BONES AND SOFT TISSUES: Unremarkable. RAD/Chest 1 View (Portable) IMPRESSION: No radiographic evidence of acute cardiopulmonary disease. Electronically Signed: Nella Elena MD at 15:47 EST ,
--- NOTE | 2023-12-18 14:32 | EX.ED.DYSGE1 ---
HPI History of Present Illness Chief Complaint: Syncope Informant: patient Onset/Context/Timing Onset: Days Timing: Intermittent Current Severity: Mild Maximum Severity: Mild Narrative Narrative: 43-year-old female history of anxiety. On evening she stood up and a syncopal episode. Said she fell on the hardwood floor. Said she was told she was out because this was witnessed for about 2 to 3 minutes. She has had syncopal episodes before without specific diagnosis. States that she has had diarrhea for the last 2 to 3 days. No vomiting. No fever. No significant cough or shortness of breath. No head ache. Prior similar symptoms: Yes Recent Illness/Hospitalization: No PFSH PFSH Medical History Anxiety Arthritis PTSD (post-traumatic stress disorder) Home Medications aripiprazole 20 mg tablet (Abilify) 40 mg PO DAILY 12/18/23 [History Last Taken Unknown] clonazepam 1 mg tablet 1 mg PO DAILY 12/18/23 [History Last Taken Unknown] Allergy/AdvReac Type Severity Reaction Status Date / Time lactose Allergy Upset Verified 12/18/23 14:04 Stomach Surgical History H/O foot surgery Social History household members: significant other Smoking Status: Current every day smoker tobacco type: cigarettes details: Not recently. substance use type: marijuana and methamphetamine ROS ROS ED ROS Narrative Diarrhea. Syncope. Review of Systems ROS Unobtainable: Denies due to encephalopathy Constitutional Constitutional ED: Denies chills or fever(s) Eyes Eyes: Denies blurry vision ENT ENT ED: Denies ear pain Cardiovascular Cardiovascular: Denies chest pain Respiratory/Chest Respiratory/Chest: Denies cough or dyspnea Gastrointestinal Gastrointestinal: Reports diarrhea; Denies abdominal pain, constipation, melena, nausea or vomiting Genitourinary Genitourinary ED: Denies dysuria or hematuria Musculoskeletal Musculoskeletal: Denies arthralgias, back pain, myalgias or neck pain Integumentary Denies abscess or Abrasions Neurologic Neurologic: Denies headache(s) Psychiatric Psychiatric: Reports anxiety Endocrine Endocrinology: Denies cold intolerance or heat intolerance Hematologic/Lymphatic Hematologic/Lymphatic: Reports none Allergic/Immunologic Allergic/Immunologic ED: Denies mouth swelling, tongue swelling, urticaria or other EXAM Physical Exam Narrative Exam Narrative: Well-appearing 43-year-old female. Vital signs are stable initial blood pressure 102/67 but she is a thin female. She is afebrile. Her pulse ox 9% on room air no signs hypoxia. H EENT exam is round reactive light extra motions are intact. No signs of trauma to her face or scalp. No hematoma or tenderness. Mild dry mucous membranes. Neck nontender trachea midline. Lungs clear to auscultation bilaterally. Heart regular rhythm rate about 60 no murmur. Chest wall and ribs nontender. Abdomen soft nontender. Nondistended. Pelvic girdle intact. Moving all 4 extremities. Nontender. No deformity. 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 Normal range of motion both upper extremities. Normal dorsi and plantarflexion bilaterally. Normal flexion extension of both hips, knees and ankles. No deformity. No shortening or rotation. Back nontender. Neurologically she is awake and alert. Answer questions following commands. She knows day of the week month and year. Const Vital Signs: 12/18/23 14:04 12/18/23 14:29 12/18/23 14:39 Temperature 96.6 F L Temperature Source Temporal Pulse Rate 59 L Respiratory Rate 18 Respiratory Pattern Normal Blood Pressure 102/67 Blood Pressure Mean 78 Pulse Ox 100 Oxygen Delivery Method Room Air Room Air 12/18/23 14:51 Temperature Temperature Source Pulse Rate 59 L Respiratory Rate 15 Respiratory Pattern Blood Pressure 99/68 Blood Pressure Mean 78 Pulse Ox 100 Oxygen Delivery Method Nasal Cannula Positive well nourished and well developed; Negative for obese, cachectic, contractures or unkempt General Appearance ED: well developed and NAD; Negative for unkempt, cachectic, contractures, cyanotic, diaphoretic or pallor Nutritional Appearance: Negative for cachectic or obese HEENT Reports TM's clear and dry mucous membranes; Denies moist mucous membranes Negative for trauma or tenderness Tympanic Membrane ED: Yes TM's clear Mouth ED: Yes dry mucous membranes Mouth: dry mucous membranes Eyes PERRL and EOMs intact bilaterally General Eye ED: Negative for pale conjunctiva or scleral icterus Neck no lymphadenopathy, supple and no JVD General: Negative for tenderness Lymph Lymphatic: Negative for other Chest Wall inspection of chest normal and palpation of chest normal Chest: Negative for other Resp normal respiratory effort and clear to auscultation bilaterally Effort and Inspection: Negative for retractions Auscultation: Negative for rales, rhonchi or wheezes Cardio regular rhythm, S1 normal heart sound, S2 normal heart sound and no murmurs Rate: Negative for bradycardia or tachycardic Rhythm: Negative for abnormal rhythm GI normal to inspection, nondistended, normoactive bowel sounds, non-tender, non-distended and no masses; Negative for hepatosplenomegaly Inspection: Negative for abdominal distention Auscultation: normoactive bowel sounds Palpation: soft; Negative for tender, guarding, mass or rebound tenderness present Back/Spine no CVA tenderness General Back: Negative for CVA tenderness Cervical Spine: Negative for cervical spine tenderness Thoracic Spine / Upper Back: Negative for thoracic spinal tenderness or paraspinal muscle tenderness Lumbar Spine / Lower Back: Negative for lumbar spinal tenderness Extremity normal to inspection General Extremety ED: Negative for edema or tenderness General Extremity: Negative for edema Neuro oriented x3 and CN's II-XII intact bilaterally Sensorium / Orientation: alert; Negative for orientation impaired, lethargic or stuporous Motor Exam: strength 5/5 throughout; Negative for general weakness or strength abnormal Psych mental status grossly normal Appearance: Negative for unkempt Attitude: No agitated Mood & Affect: Negative for depressed, anxious or tearful Skin no rashes or lesions noted, no wounds and skin turgor normal General Skin Exam: Negative for jaundice or pallor Lesions: No lesion noted Rashes: No rashes noted Trauma: Negative for abrasion Wounds: Negative for wounds noted MDM MDM MDM Narrative Medical decision making narrative: 43-year-old female patient history of anxiety and PTSD. Had a syncopal episode 2 days ago on evening. Since that time she has had some diarrhea and loose stools. Exam benign other than she looks mildly dehydrated. She will receive IV fluids and screening labs. She has no known cardiac history. Repeat exam at 3:31 PM patient is doing well. No significant change. Patient doing well. Clinically looks good. Vital signs are stable. Blood pressure is 119/72 at this time. History & Record Review Discussion w/independent historian: Patient Additional record(s) reviewed:: Prior inpatient record, Prior outpatient record, Prior ED visit and Prior labs Lab Data Attestation: I reviewed the patient's lab results. Lab results narrative: CBC unremarkable. White count of 4. H&H of 12 and 37. Platelets 219. Electrolytes show a gap of 0. BUN of 11 creatinine 0.75 no signs of dehydration. Glucose 105. Troponin is normal at 5. EKG is a sinus bradycardia rate of 57. Chest x-ray is normal. Labs: Laboratory Results - last 24 hr 12/18/23 14:45 WBC 4.5 RBC 4.09 L Hgb 12.5 Hct 37.7 MCV 92.2 MCH 30.6 MCHC 33.2 RDW Std Deviation 41.9 RDW Coeff of Grace 12.4 Plt Count 219 MPV 10.9 Immature Gran % (Auto) 0.200 Neut % (Auto) 59.9 Lymph % (Auto) 23.2 Hyde % (Auto) 5.4 Eos % (Auto) 10.9 H Baso % (Auto) 0.4 Absolute Neuts (auto) 2.7 Absolute Lymphs (auto) 1.04 Nucleated RBC % 0 Sodium 140 Potassium 3.8 Chloride 114 H Carbon Dioxide 26.0 Anion Gap 0 L BUN 11 Creatinine 0.75 Estim Creat Clear Calc 98.99 Est GFR (MDRD) Af Amer 108 Est GFR (MDRD) Non-Af 89 BUN/Creatinine Ratio 14.7 Glucose 105 Calcium 8.7 Troponin I High Sens 5 Radiography Chest X-Ray - ED: 1 View, Read by ED Physician, Heart, Lungs, Mediastinum, Bony Structures and No Acute Disease Diagnostic Testing: Chest x-ray, portable, single view interpreted by myself shows no acute abnormality. Normal cardiac silhouette. Normal mediastinum. Normal lung modi. Rhythm Strip Rhythm Strip: Sinus bradycardia Rate: 57 Ectopy: None EKG Initial EKG: Attestation: I personally reviewed and interpreted this EKG as follows: Interpretation: Sinus Rhythm, No Acute Injury Pattern and Sinus Bradycardia Comments: Sinus bradycardia rate of 57 no acute signs of VT or ischemia. No block. Discharge Plan Triage Chief Complaint: Syncope ED Provider: Ian Law Dx/Rx/DC Orders Clinical Impression: Syncope, Diarrhea Instructions: ED Fainting, Uncertain Cause Prescriptions: No Action aripiprazole [Abilify] 20 mg tablet 40 mg PO DAILY clonazepam 1 mg tablet 1 mg PO DAILY Primary Care Provider: Care Physician,No Primary Referrals: He Boland MD [Med Staff - Seafood Technology Specialist] - 1 Week if not improving NOT,DEFINED [Non-Staff] - Activity Restrictions/Additional Instructions: Plenty of fluids and rest. If the diarrhea does not improve you may start using Imodium. Follow-up with your doctor or the doctor assigned to if you are not improving. Your labs today EKG and chest x-ray were all unremarkable. Disposition Disposition: Home, Self Care
--- OUTSIDE RECORDS SUMMARY | 2023-12-18 14:50 | XMS RPT_ITS | CCD ---
Author Name Unknown Address [address] [place] [address] Organization [facility] Care Team Providers Care Cooker Syrup Name Role Phone Indigo Oleary Unavailable Unavailable Alix Bruce Unavailable Unavail able Alix Bruce MD Primary Care Provide r PHYSICIAN, [facility]. Primary Care Provider Unavailab DORIS Cabrera Other Provider MD CORY FLOR Emergency Provider RORO ALIX Primary Care Provider Alix Bruce MD Primary Care Provide r Andres Lauren Unavailable RORO ALIX Primary Care Provider [phone] MD PATRICIA BEE Emergency Provider RORO ALIX Primary Care Unavailab CORY Fuentes Attending Unavailable DORIS-MICHOACANO ALIX Primary Care Unavailab le UNKNOWN, PROVIDER Attending Unavailable Alix Bruce MD Primary Care Provide r MANUEL MONTOYA Attending Unavailable MARIANO NUNEZ Attending Unavailable MARIANO NUNEZ Attending Unavailable RALPH JONES Attending Unavailable MARIANO NUNEZ Attending Unavailable RALPH JONES Attending Unavailable RAFAT SABA Attending Unavailab le DORISALIX WARE Attending Unavail able DORIS BEERALIX Baez Primary Care Unavail able DORIS BEERALIX Baez Attending Unavail able DORIS BEERS, ALIX Tanner Primary Care Unavail able DORIS BEERS, ALIX Tanner Attending Unavail able DORIS BEERS, ALIX Tanner Primary Care Unavail able Allergies Allergy Classification Reported Allergen(s) Allergy Type Date of Onset Reaction(s) Facility (1 source) Lactose Drug Allergy 10-01-2022 Unknown [facility] Medications Current Medications Medication Drug Class(es) Dates Sig (Normalized) Sig (Original) clonazePAM 1 mg oral tablet (1 source) Benzodiazepine Start: 10-04-2023 End: 11-03-2023 take 1 tablet by mouth three times daily as needed for anxiety clonazePAM (KLONOPIN) 1 mg tablet Indications: JOSÉ LUIS (generalized anxiety disorder) , Other obsessive-compulsi ve disorders Take 1 tablet by mouth three times a day as needed for anxiety for up to 30 days. 90 tablet 0 10/04/2023 11/03/2023 Active Completed/Discontinued Medications Medication Drug Class(es) Dates Sig (Normalized) Sig (Original) [id number] 200 actuat albuterol 0.09 mg/actuat metered dose inhaler (1 source) beta2-Adrenergic Agonist Start: 10-04-2023 take 2 puff(s) by inhalation every six hours as needed for wheezing albuterol HFA (PROVENTIL HFA, VENTOLIN HFA) 90 mcg/actuation inhaler Inhale 2 Puffs as instructed every 6 hours as needed for wheezing/shortnes s of breath. 1 Each 5 10/04/2023 Active Problems Active Problems Problem Classification Problem Date Documented Date Episodic/Chronic Adjustment disorders (4 sources) Stress; Translations: [Reaction to severe stress, unspecified] Onset: 08-25-2022 09-03-2022 Chronic Anxiety disorders (20 sources) Obsessive-compulsive disorder; Translations: [Other obsessive-compulsive disorder] Onset: 08-25-2022 Chronic Cardiac dysrhythmias (1 source) Palpitations; Translations: [Palpitations] 10-04-2023 Episodic Disorders of lipid metabolism (20 sources) Hypertriglyceridemia; Translations: [Pure hyperglyceridemia] Onset: 10-24-2015 10-24-2015 Chronic Esophageal disorders (7 sources) Gastroesophageal reflux disease without esophagitis; Translations: [Gastro-esophageal reflux disease without esophagitis] Chronic Infective arthritis and osteomyelitis (except that caused by tuberculosis or sexually transmitted disease) (2 sources) Sesamoiditis; Translations: [Sesamoiditis] Episodic Miscellaneous mental health disorders (2 sources) Psychogenic hyperventilation; Translations: [Other somatoform disorders] 09-23-2022 Chronic Other connective tissue disease (4 sources) Plantar fasciitis; Translations: [Plantar fasciitis, left] Episodic Other connective tissue disease (9 sources) Pain in both feet; Translations: [Pain in right foot] Episodic Other ear and sense organ disorders (1 source) Hearing finding; Translations: [Other specified hearing loss, bilateral] 10-04-2023 Chronic Other lower respiratory disease (1 source) Cough; Translations: [Cough] 08-23-2023 Episodic Other non-traumatic joint disorders (1 source) Multiple joint pain; Translations: [Pain in unspecified joint] 10-04-2023 Episodic Other nutritional; endocrine; and metabolic disorders (20 sources) Body mass index 40+ - severely obese; Translations: [Morbid (severe) obesity due to excess calories] Onset: 02-23-2018 02-23-2018 Chronic Other upper respiratory disease (1 source) Nasal congestion; Translations: [Nasal congestion] 08-23-2023 Episodic Other upper respiratory disease (1 source) Congestion of nasal sinus; Translations: [Nasal congestion] 08-23-2023 Episodic Other upper respiratory infections (1 source) Sore throat symptom; Translations: [Acute pharyngitis, unspecified] 08-23-2023 Episodic Residual codes; unclassified (2 sources) Mechanical pain; Translations: [Mechanical pain of right foot] Episodic Superficial injury; contusion (3 sources) Hematoma of left thigh; Translations: [Contusion of left thigh, initial encounter] 06-28-2022 Episodic Syncope (1 source) Syncope; Translations: [Syncope and collapse] 10-04-2023 Episodic Unclassified (1 source) APPOINTMENT CANCELLED Past or Other Problems Problem Classification Problem Date Documented Date Episodic/Chronic Conditions associated with dizziness or vertigo (20 sources) Benign paroxysmal positional vertigo; Translations: [Benign paroxysmal vertigo, unspecified ear] Onset: 10-24-2015 10-24-2015 Episodic Immunizations and screening for infectious disease (2 sources) Encounter for screening for infections with a predominantly sexual mode of transmission; Translations: [Encounter for screening for human papillomavirus (HPV)] Onset: 09-22-2022 Episodic Other nutritional; endocrine; and metabolic disorders (1 source) Overweight; Translations: [Overweight] Onset: 09-22-2022 Episodic Other screening for suspected conditions (not mental disorders or infectious disease) (5 sources) Patient encounter status; Translations: [Encounter for screening mammogram for malignant neoplasm of breast] Onset: 09-22-2022 Episodic Residual codes; unclassified (1 source) Tobacco use; Translations: [Tobacco use] Onset: 09-22-2022 Episodic Results Test Name Value Interpretation Reference Range Facil ity Vital Signs Date Time Vital Sign Value Performing Clinician Facility 10-04-2023 14:31-0500 Body height 176.5 cm Alix Ríos MD Work Phone: [facility] 10-04-2023 14:31-0500 Body weight 78.93 kg Alix Ríos MD Work Phone: [facility] 10-04-2023 14:31-0500 Diastolic blood pressure 49 mm[Hg] Alix Ríos MD Work Phone: [facility] 10-04-2023 14:31-0500 Heart rate 76 /min Alix Ríos MD Work Phone: [facility] 10-04-2023 14:31-0500 Systolic blood pressure 106 mm[Hg] Alix Ríos MD Work Phone: [facility] 10-01-2022 12:57-0500 Body height 176.53 cm [facility] 10-01-2022 12:57-0500 Body mass index (BMI) [Ratio] 30.42 kg/m2 Adnres Lauren [facility] 10-01-2022 12:57-0500 Body weight 94.8 kg Andrse Lauren [facility] 10-01-2022 12:57-0500 Diastolic blood pressure 85 mm[Hg] [facility] 10-01-2022 12:57-0500 Heart rate 86 /min Andres Lauren [facility] 10-01-2022 12:57-0500 Systolic blood pressure 116 mm[Hg] Andres Lauren [facility] 09-23-2022 14:19-0400 Body temperature 97.1 [degF] ALIX READ Work Phone: [facility] 09-23-2022 14:19-0400 Diastolic blood pressure 57 mm[Hg] ALIX READ Work Phone: [facility] 09-23-2022 14:19-0400 Heart rate 61 /min ALIX READ Work Phone: [facility] 09-23-2022 14:19-0400 Respiratory rate 16 /min ALIX READ Work Phone: [facility] 09-23-2022 14:19-0400 SaO2% (BldA) [Mass fraction] 100 % ALIX READ Work Phone: [facility] 09-23-2022 14:19-0400 Systolic blood pressure 103 mm[Hg] ALIX READ Work Phone: [facility] 09-23-2022 13:01-0400 Body height 175.26 cm ALIX READ Work Phone: [facility] 09-23-2022 13:01-0400 Body weight 89.81 kg ALIX READ Work Phone: [facility] 06-28-2022 16:00-0400 Diastolic blood pressure 86 mm[Hg] MISC. PHYSICIAN [facility] 06-28-2022 16:00-0400 Heart rate 55 /min MISC. PHYSICIAN [facility] 08-07-2022 16:00-0400 Respiratory rate 18 /min MISC. PHYSICIAN [facility] 06-28-2022 16:00-0400 SaO2% (BldA) [Mass fraction] 97 % MISC. PHYSICIAN [facility] 06-28-2022 16:00-0400 Systolic blood pressure 131 mm[Hg] MISC. PHYSICIAN [facility] 06-28-2022 13:13-0400 Body temperature 97.2 [degF] MISC. PHYSICIAN [facility] 06-28-2022 13:13-0400 Body weight 90.72 kg MISC. PHYSICIAN [facility] Encounters Encounter Date Encounter Type Care Provider Facility Start: 10-04-2023 End: 10-04-2023 ambulatory ALIX RÍOS Facility:[facility] Start: 10-04-2023 End: 10-04-2023 Patient encounter procedure Alix Ríos MD Work Phone: [facility] Procedures Date Procedure Procedure Detail Performing Clinician Start: 09-17-2022 Psychotherapy w/gisela ent 60 minutes Andres Lauren Start: 08-25-2022 Psychiatric diagnost ic evaluation Andres Lauren Start: 06-28-2022 CT of left lower extremity MISC. PHYSICIAN Start: 06-10-2022 Adult depression scr eening assessment Alix Ríos MD Work Phone: Start: 05-06-2022 Adult depression scr eening assessment Alix Ríos MD Work Phone: Start: 02-04-2019 Adult depression scr eening assessment Alix Ríos MD Work Phone: Start: 03-04-2015 Lipid 1996 panel - S mg or Plasma Alix Ríos MD Work Phone: Plan of Treatment Date Care Activity Detail Author Start: 06-22-2033 Urine microalbumin profile DTaP,Tdap,Td Vaccine (3 - Td or Tdap) [facility] Start: 10-04-2023 End: 01-03-2024 CBC W Auto Differential panel - Blood CBC + DIFF Lab Routine Palpitations Syncope, unspecified syncope type Expected: 10/04/2023, Expires: 01/03/2024 [facility] Work Phone: Immunizations Immunization Date Immunization Notes Care Provider Maida cummins 11-18-2017 influenza virus vacc ine, unspecified formulation Alix Ríos MD Work Phone: [facility] 09-21-2011 tetanus toxoid, redu charo diphtheria toxoid, and acellular pertussis vaccine, adsorbed Alix Ríos MD Work Phone: [facility] Payers Date Payer Category Payer Medicaid MEDICAID [facility] MEDICAID [id number] 2022-Present [phone] [address] [place] [address] Medicaid [id number] 2022 Medicaid [id number] 2022 Medicaid [id number] 1978 Unknown [id number] 1978 Unknown [id number] 1978 Unknown [id number] 1978 Unknown [id number] Unknown [id number] Unknown [id number] Social History Date Type Detail Facility Start: 02-22-2015 Tobacco smoking stat us [facility] Smokes tobacco daily [facility] History of tobacco use Cigarette Smoker C [facility] Start: 02-25-2019 End: 10-04-2023 Alcohol intake Current drinker of alcohol (finding) [facility] Start: 1980 Sex Assigned At Not on file [facility] Start: 01-20-2022 End: 05-06-2022 Exposure to SARS-CoV-2 (event) Unable to assess [facility] Start: 05-06-2022 History SDOH Alcohol Frequency 4 [facility] Start: 05-06-2022 End: 12-04-2022 History SDOH Alcohol Std Drinks 2 [facility] Start: 05-06-2022 End: 12-04-2022 History SDOH Social Connections Get Together 1 [facility] Start: 05-06-2022 End: 12-04-2022 History SDOH Social Connections Living 8 [facility] Start: 05-06-2022 End: 12-04-2022 History SDOH Physical Activity MPS 3 [facility] Start: 05-06-2022 End: 12-04-2022 History SDOH Stress 5 [facility] Start: 1980 Sex Assigned At Female [facility] Start: 06-28-2022 End: 09-23-2022 Tobacco smoking status NHIS Current Heavy tobacco smoker [facility] Start: 06-28-2022 Rarely [facility] Start: 06-28-2022 No [facility] Start: 02-22-2015 End: 10-04-2023 Cigarettes smoked current (pack per day) - Reported 0.3 [facility] Start: 02-22-2015 Tobacco use and exposure Smoke less tobacco non-user [facility] Work Phone: Start: 1980 End: 10-04-2023 Sex Assigned At [facility] Start: 09-23-2022 Never [facility] Start: 12-04-2022 History SDOH Housing Places Lived 12 [facility] Active Member of [facility] bs or Organizations Not on file [facility] Are you now , , , , never or living with a partner? Living with partner [facility] How often to you hav e a drink containing alcohol? 2-4 times a month [facility] How many standard dr inks containing alcohol do you have on a typical day? 1 or 2 [facility] How often do you hav e 6 or more drinks on 1 occasion? Less than monthly [facility] How hard is it for y ou to pay for the very basics like food, housing, medical care, and heating Very hard [facility] Do you feel stress - tense, restless, nervous, or anxious, or unable to sleep at night because your mind is troubled all the time - these days [OSQ] Very much [facility] (I/We) worried whestephon er (my/our) food would run out before (I/we) got money to buy more. Often true [facility] At any time in the p ast 12 months, were you homeless or living in half-way [including now]? Yes [facility] Start: 06-10-2022 Gender identity Identifies as female gender (finding) [facility] Start: 06-10-2022 Sexual orientation Homosexual (findi ng) [facility] NEGATED: Highlighted row - - [employer] Work Phone: Medical Equipment Procedure Code Equipment Code Equipment Original Text Equi pment Identifier Dates Procedure Implant ([id number]) Functional Status Date Assessment Result Facility NEGATED: Highlighted row Functional performance Functional status health issues are not documented Disease c-[facility]ct[facility] 200 Work Phone: Mental Status Date Assessment Result Facility 09-23-2022 Cognitive function Level Of Cons ciousness Awake;Alert;Appropriate ;Follows Commands [facility] Work Phone: 09-23-2022 Cognitive function Arousable To Name [facility] Work Phone: 06-28-2022 Cognitive function Level Of Cons ciousness Awake;Alert;Appropriate ;Follows Commands [facility] Work Phone: NEGATED: Highlighted row Cognitive function [Interpretation] Cognitive status health issues are not documented Disease AP-[facility]I-[facility] Work Phone: Clinical Notes 10-24-2015 to 10-04-2023 Alix Bruce MD - 10/04/2023 3:16 PM ESTPatient InstructionsTelephone Encounter - Donell Hager - 09/28/2023 11:35 AM Maris HarrisGEMA - 12/09/2022 2:29 PM EST Note Date & Type Note Facility 10-04-2023 Note HNO ID: [id number] Author: Alix Bruce MD Service: ? Author Type: Physician Type: Progress Notes Filed: 10/04/2023 3:25 PM Note Text: Rosalinda Agustin presents for review of medical problems. José Luis/ocd--on celexa and ativan, feels like ativan is not lasting long. Feels increase in anxiety when it wears off. Would like to try something else Insomnia--significant trouble falling asleep, seems to stay asleep OK. Took seroquel years ago, felt too sedated New palpitations, feels that stress is a trigger. Also feels that heart races with abrupt position change Syncope--new issue. Feels unwell like she is going to pass out. Next thing she recalls is waking up on the floor. Some loss of bowel/bladder though this generally happens in the AM. Feels well between episodes. Not sure how long she is out. No witnesses report any seizure like activity. Polyarthralgia--pain In both hands with joint swelling Reports hearing loss in both ears. PAST MEDICAL HISTORY Diagnosis Date Anxiety GERD (gastroesophageal reflux disease) OCD (obsessive compulsive disorder) Panic disorder Current Outpatient Medications Medication Sig topiramate (TOPAMAX) 200 mg tablet Take 1 tablet by mouth daily at bedtime. pregabalin (LYRICA) 100 mg capsule Take 1 capsule by mouth two times a day for 30 days. omeprazole (PRILOSEC) 40 mg capsule Take 1 capsule by mouth once daily. Magnesium 250 mg tab Take 1 tablet by mouth once daily. fexofenadine (BALTAZAR) 180 mg tablet Take 1 tablet by mouth once daily. cyanocobalamin (VITAMIN B-12) 1,000 mcg tab Take 1 tablet by mouth once daily. Cane Use daily as needed citalopram (CELEXA) 40 mg tablet Take 1 tablet by mouth once daily. clotrimazole-betamethasone (LOTRISONE) lotion Apply to affected area twice daily. clonazePAM (KLONOPIN) 1 mg tablet Take 1 tablet by mouth three times a day as needed for anxiety for up to 30 days. traZODone (DESYREL) 50 mg tablet Take 1 tablet by mouth daily at bedtime. albuterol HFA (PROVENTIL HFA, VENTOLIN HFA) 90 mcg/actuation inhaler Inhale 2 Puffs as instructed every 6 hours as needed for wheezing/shortness of breath. [facility] Natural Product Nasal (PONARIS) soln Use 1 mL in the nose twice daily. No current facility-administered medications for this visit. EXAM: BP (!) 106/49 (BP Site: Right Arm, BP Position: Sitting, BP Cuff Size: Large Adult) Pulse 76 Ht 176.5 cm (5' 9.5 ) Wt 78.9 kg (174 lb) LMP 01/05/2019 (Exact Date) BMI 25.33 kg/m? APPEARANCE Well appearing, alert, in no acute distress, well-hydrated, well nourished. EARS External ears normal, canals clear MOUTH No oral / pharyngel lesions/ exudate NECK Supple, no adenopathy; thyroid symmetric, normal size HEART RRR with normal S1 and S2, no murmurs, no gallops, no JVD appreciated LUNG clear to auscultation Abdomen: soft, nondistended, nontender, no hepatosplenomegaly or masses ASSESSMENT/PLAN: 1. JOSÉ LUIS (generalized anxiety disorder) - ICD9: 300.02, ICD10: F41.1 (primary diagnosis) 2. Other obsessive-compulsive disorders - ICD9: 300.3, ICD10: F42.8 Change to klonopin - CLONAZEPAM 1 MG TABLET 3. Chronic insomnia - ICD9: 780.52, ICD10: F51.04 - TRAZODONE 50 MG TABLET 4. Palpitations - ICD9: 785.1, ICD10: R00.2 5. Syncope, unspecified syncope type - ICD9: 780.2, ICD10: R55 Etiology unclear Vasovagal ?pots - CONSULT TO CARDIOLOGY - LIPID PANEL BASIC - CBC + DIFF - COMP METABOLIC PANEL 6. Polyarthralgia - ICD9: 719.49, ICD10: M25.50 - XR HAND GENERAL 3V PA/LAT/OBL BILATERAL 7. Other specified hearing loss of both ears - ICD9: 389.8, ICD10: H91.8X3 - HEARING TEST/AUDIOGRAM I spent a total of 42 minutes on the date of the service which included preparing to see the patient, [id number] patient care, and completing clinical documentation. Alix Ríos MD [facility] 10-04-2023 History of Present illness Narrative Rosalinda Wolf Jose presents for review of medical problems. José Luis/ocd--on celexa and ativan, feels like ativan is not lasting long. Feels increase in anxiety when it wears off. Would like to try something else Insomnia--significant trouble falling asleep, seems to stay asleep OK. Took seroquel years ago, felt too sedated New palpitations, feels that stress is a trigger. Also feels that heart races with abrupt position change Syncope--new issue. Feels unwell like she is going to pass out. Next thing she recalls is waking up on the floor. Some loss of bowel/bladder though this generally happens in the AM. Feels well between episodes. Not sure how long she is out. No witnesses report any seizure like activity. Polyarthralgia--pain In both hands with joint swelling Reports hearing loss in both ears. PAST MEDICAL HISTORY Diagnosis Date Anxiety GERD (gastroesophageal reflux disease) OCD (obsessive compulsive disorder) Panic disorder Current Outpatient Medications Medication Sig topiramate (TOPAMAX) 200 mg tablet Take 1 tablet by mouth daily at bedtime. pregabalin (LYRICA) 100 mg capsule Take 1 capsule by mouth two times a day for 30 days. omeprazole (PRILOSEC) 40 mg capsule Take 1 capsule by mouth once daily. Magnesium 250 mg tab Take 1 tablet by mouth once daily. fexofenadine (BALTAZAR) 180 mg tablet Take 1 tablet by mouth once daily. cyanocobalamin (VITAMIN B-12) 1,000 mcg tab Take 1 tablet by mouth once daily. Cane Use daily as needed citalopram (CELEXA) 40 mg tablet Take 1 tablet by mouth once daily. clotrimazole-betamethasone (LOTRISONE) lotion Apply to affected area twice daily. clonazePAM (KLONOPIN) 1 mg tablet Take 1 tablet by mouth three times a day as needed for anxiety for up to 30 days. traZODone (DESYREL) 50 mg tablet Take 1 tablet by mouth daily at bedtime. albuterol HFA (PROVENTIL HFA, VENTOLIN HFA) 90 mcg/actuation inhaler Inhale 2 Puffs as instructed every 6 hours as needed for wheezing/shortness of breath. [facility] Natural Product Nasal (PONARIS) soln Use 1 mL in the nose twice daily. No current facility-administered medications for this visit. EXAM: BP (!) 106/49 (BP Site: Right Arm, BP Position: Sitting, BP Cuff Size: Large Adult) Pulse 76 Ht 176.5 cm (5' 9.5 ) Wt 78.9 kg (174 lb) LMP 01/05/2019 (Exact Date) BMI 25.33 kg/m APPEARANCE Well appearing, alert, in no acute distress, well-hydrated, well nourished. EARS External ears normal, canals clear MOUTH No oral / pharyngel lesions/ exudate NECK Supple, no adenopathy; thyroid symmetric, normal size HEART RRR with normal S1 and S2, no murmurs, no gallops, no JVD appreciated LUNG clear to auscultation Abdomen: soft, nondistended, nontender, no hepatosplenomegaly or masses ASSESSMENT/PLAN: 1. JOSÉ LUIS (generalized anxiety disorder) - ICD9: 300.02, ICD10: F41.1 (primary diagnosis) 2. Other obsessive-compulsive disorders - ICD9: 300.3, ICD10: F42.8 Change to klonopin - CLONAZEPAM 1 MG TABLET 3. Chronic insomnia - ICD9: 780.52, ICD10: F51.04 - TRAZODONE 50 MG TABLET 4. Palpitations - ICD9: 785.1, ICD10: R00.2 5. Syncope, unspecified syncope type - ICD9: 780.2, ICD10: R55 Etiology unclear Vasovagal ?pots - CONSULT TO CARDIOLOGY - LIPID PANEL BASIC - CBC + DIFF - COMP METABOLIC PANEL 6. Polyarthralgia - ICD9: 719.49, ICD10: M25.50 - XR HAND GENERAL 3V PA/LAT/OBL BILATERAL 7. Other specified hearing loss of both ears - ICD9: 389.8, ICD10: H91.8X3 - HEARING TEST/AUDIOGRAM I spent a total of 42 minutes on the date of the service which included preparing to see the patient, [id number] patient care, and completing clinical documentation. Alix Ríos MD documented in this encounter [facility] 10-04-2023 Instructions Alix Bruce MD - 10/04/2023 3:09 PM EST Cardiology [phone] Hearing test [phone] documented in this encounter [facility] 09-28-2023 Miscellaneous Notes Summary: APPT CONFIRMATION Call rec'd from Ti, a dispatcher with [id number], to confirm the patient's upcoming office appointment at [facility] 10/04/2023 at 2:40 PM. I advised Ti of the office location and hours of caregiving as well as the appt itself. Patient ID confirmed via name, and phone number. ZACH Rai documented in this encounter [facility] 08-30-2023 Miscellaneous Notes The following approved medication requests have been transmitted electronically. Requested Prescriptions Signed Prescriptions Disp Refills topiramate (TOPAMAX) 200 mg tablet 90 tablet 3 Sig: Take 1 tablet by mouth daily at bedtime. Authorizing Provider: ALIX BRUCE pregabalin (LYRICA) 100 mg capsule 60 capsule 5 Sig: Take 1 capsule by mouth two times a day for 30 days. Authorizing Provider: ALIX BRUCE omeprazole (PRILOSEC) 40 mg capsule 90 capsule 3 Sig: Take 1 capsule by mouth once daily. Authorizing Provider: ALIX BRUCE Magnesium 250 mg tab 90 tablet 3 Sig: Take 1 tablet by mouth once daily. Authorizing Provider: ALIX BRUCE LORazepam (ATIVAN) 2 mg tab 90 tablet 0 Sig: Take 1 tablet by mouth three times a day as needed for up to 30 days. Authorizing Provider: ALIX BRUCE fexofenadine (BALTAZAR) 180 mg tablet 90 tablet 3 Sig: Take 1 tablet by mouth once daily. Authorizing Provider: ALIX BRUCE MD documented in this encounter [facility] 07-30-2023 Miscellaneous Notes The following approved medication requests have been transmitted electronically. Requested Prescriptions Signed Prescriptions Disp Refills LORazepam (ATIVAN) 2 mg tab 90 tablet 0 Sig: Take 1 tablet by mouth three times daily as needed for up to 30 days. Authorizing Provider: ALIX BRUCE MD Summary: REFILL REQUEST Call rec'd from the patient's significant other & emergency contact Shelley Pelaez requesting a refill of the patient's following medication: LORazepam (ATIVAN) 2 mg tab Her preferred pharmacy was verified as well; I advised Ms. Pelaez to remind the patient to allow up to two business days for processing. Patient ID confirmed via name, and phone number. documented in this encounter [facility] 06-30-2023 Miscellaneous Notes All of these are active with multiple refills Ativan and celexa filled Monday 06/25 She needs to contact the pharmacy for these Summary: REFILL REQUEST Patient called in to request refill on the following medications: LORazepam (ATIVAN) 2 mg tab topiramate (TOPAMAX) 200 mg tablet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 nourished, and happy, smiling, interactive ASSESSMENT/PLAN: 1. Other obsessive-compulsive disorders - ICD9: 300.3, ICD10: F42.8 (primary diagnosis) 2. JOSÉ LUIS (generalized anxiety disorder) - ICD9: 300.02, ICD10: F41.1 - PRIMARY CARE SOCIAL WORK CONSULT - CITALOPRAM 40 MG TABLET - LORAZEPAM 2 MG TABLET - TOPIRAMATE 200 MG TABLET 3. GERD without esophagitis - ICD9: 530.81, ICD10: K21.9 - OMEPRAZOLE 40 MG CAPSULE,DELAYED RELEASE 4. Bilateral foot pain - ICD9: 729.5, ICD10: M79.671, M79.672 - PREGABALIN 100 MG CAPSULE Alix Ríos MD documented in this encounter [facility] 12-01-2022 Miscellaneous Notes Patient has been identified by name and date of : Yes Requested Prescriptions Pending Prescriptions Disp Refills citalopram (CELEXA) 40 mg tablet 90 tablet 3 Sig: Take 1 tablet by mouth once daily. LORazepam (ATIVAN) 2 mg tab 90 tablet 0 Sig: Take 1 tablet by mouth three times daily as needed for up to 30 days. topiramate (TOPAMAX) 200 mg tablet 90 tablet 3 Sig: Take 1 tablet by mouth daily at bedtime. omeprazole (PRILOSEC) 40 mg capsule 90 capsule 3 Sig: Take 1 capsule by mouth once daily. pregabalin (LYRICA) 100 mg capsule 60 capsule 5 Sig: Take 1 capsule by mouth twice daily for 30 days. Refused Prescriptions Disp Refills Cane 1 Each 0 Sig: Use daily as needed Refused By: BRITTNEY BRYANT cyanocobalamin (VITAMIN B-12) 1,000 mcg tab Sig: Take 1 tablet by mouth once daily. Refused By: BRITTNEY BRYANT RX INSTRUCTIONS: Patient aware RX will be sent to pharmacy. No need to notify patient. Brittney Bryant documented in this encounter [facility] 11-02-2022 Miscellaneous Notes Patient has been identified by name and date of : Yes Requested Prescriptions Pending Prescriptions Disp Refills pregabalin (LYRICA) 100 mg capsule 60 capsule 5 Sig: Take 1 capsule by mouth twice daily for 30 days. LORazepam (ATIVAN) 2 mg tab 90 tablet 0 Sig: Take 1 tablet by mouth three times daily as needed for up to 30 days. RX INSTRUCTIONS: Patient aware RX will be sent to pharmacy. No need to notify patient. Brittney Bryant documented in this encounter [facility] Work Phone: 1(771) 359-212208-29-2022 Miscellaneous Notes* Telephone Encounter - Alix Ríos MD - 07/20/2022 12:49 PM EDT The following approved medication requests have been transmitted electronically. Requested Prescriptions Signed Prescriptions Disp Refills LORazepam (ATIVAN) 2 mg tab 90 tablet 0 Sig: Take 1 tablet by mouth three times daily as needed for up to 30 days. Authorizing Provider: ALIX BRUCE MD * Telephone Encounter - Lance Pizarro - 07/20/2022 11:04 AM EDT Patient needs refill of lorazepam. Pharmacy verified [facility] Discharge instructions Additional Instructions Ice pack application to the area as needed. Tylenol for pain, every 6-8 hours as needed for the next 2 to 3 days. Must call and follow-up with your primary care doctor in 2 to 3 days for reevaluation, return to ER if pain/swelling worse or any other problems BACK UP PHYSICIAN: YOU HAVE BEEN GIVEN THE NAME OF A PHYSICAN THAT IS ON-CALL FOR PATIENTS THAT DO NOT HAVE A LOCAL PHYSICIAN..... PLEASE FOLLOW-UP INDICATED. LET THE OFFICE KNOW YOU WERE GIVEN THE PHYSICIAN NAME AND PHONE NUMBER TO FOLLOW UP A BACK UP PATIENT.[facility] Work Phone: [phone]) 524-792008-07-2022 Hospital Discharge instructions Additional Instructions Ice pack application to the area as needed. Tylenol for pain, every 6-8 hours as needed for the next 2 to 3 days. Must call and follow-up with your primary care doctor in 2 to 3 days for reevaluation, return to ER if pain/swelling worse or any other problems BACK UP PHYSICIAN: YOU HAVE BEEN GIVEN THE NAME OF A PHYSICAN THAT IS ON-CALL FOR PATIENTS THAT DO NOT HAVE A LOCAL PHYSICIAN..... PLEASE FOLLOW-UP INDICATED. LET THE OFFICE KNOW YOU WERE GIVEN THE PHYSICIAN NAME AND PHONE NUMBER TO FOLLOW UP A BACK UP PATIENT.[facility] Work Phone: 1(765) 617-464407-21-2022 History of Present illness Narrative* Alix Ríos MD - 06/11/2022 8:56 AM EDT DISTANCE HEALTH VISIT This Team Access Model visit is a virtual encounter. It required patient- provider interaction for the medical decision making as documented below. Rosalinda Agustin is a 41 year old female seen for follow up. José Luis/ocd--overall stable. Reports occasional self deprecating voice during severe panic attacks only. Using ativan 1-2 times per day, written tid. Sleeping much better with increased dose of topamax Chronic pain--improved on lyrica 100mg bid. Needs refill gerd--stable, needs refill on omeprazole PAST MEDICAL HISTORY Diagnosis Date Anxiety GERD (gastroesophageal reflux disease) OCD (obsessive compulsive disorder) Panic disorder Current Outpatient Medications Medication Sig LORazepam (ATIVAN) 2 mg tab Take 1 tablet by mouth three times daily as needed for up to 30 days. pregabalin (LYRICA) 100 mg capsule Take 1 capsule by mouth twice daily for 30 days. omeprazole (PRILOSEC) 40 mg capsule Take 1 capsule by mouth once daily. citalopram (CELEXA) 40 mg tablet Take 1 tablet by mouth once daily. topiramate (TOPAMAX) 200 mg tablet Take 1 tablet by mouth daily at bedtime. Cane Use daily as needed [facility] Nasal (PONARIS) soln Use 1 mL in the nose twice daily. cyanocobalamin (VITAMIN B-12) 1,000 mcg tab Take 1,000 mcg by mouth once daily. Magnesium 250 mg tab Take 250 mg by mouth once daily. fexofenadine (BALTAZAR) 180 mg tablet Take 1 tablet by mouth once daily. No current facility-administered medications for this visit. PHYSICAL EXAMINATION: VIDEO EXAM: (if done, performed via video enabled technology) GENERAL: alert and appropriate, in no distress, well-hydrated, well nourished and happy, smiling, interactive ASSESSMENT/PLAN: 1. Other obsessive-compulsive disorders - ICD9: 300.3, ICD10: F42.8 - LORAZEPAM 2 MG TABLET 2. JOSÉ LUIS (generalized anxiety disorder) - ICD9: 300.02, ICD10: F41.1 - LORAZEPAM 2 MG TABLET 3. Bilateral foot pain - ICD9: 729.5, ICD10: M79.671, M79.672 - PREGABALIN 100 MG CAPSULE 4. GERD without esophagitis - ICD9: 530.81, ICD10: K21.9 - OMEPRAZOLE 40 MG CAPSULE,DELAYED RELEASE Alix Ríos MD [facility] Miscellaneous Notes* Telephone Encounter - Leila Escobar MA - 05/08/2022 10:03 AM EDT SERGEI 05/07/22 Pharmacy calls in requesting the following refill(s): Pending Prescriptions Disp Refills PREGABALIN 100 MG CAPSULE 60 capsule 0 Sig: Take 1 capsule by mouth twice daily for 30 days. CARY Class: C-V JULIO: No OMEPRAZOLE 40 MG CAPSULE,DELAYED RELEASE 90 capsule 3 Sig: Take 1 capsule by mouth once daily. JULIO: No LORAZEPAM 2 MG TABLET 90 tablet 0 Sig: Take 1 tablet by mouth three times daily as needed for up to 30 days. ACRY Class: C-IV JULIO: No CITALOPRAM 40 MG TABLET 90 tablet 3 Sig: Take 1 tablet by mouth once daily. JULIO: No TOPIRAMATE 200 MG TABLET 90 tablet 3 Sig: Take 1 tablet by mouth daily at bedtime. JULIO: No Leila Escobar MA [facility] History of Present illness Narrative* Alix Ríos MD - 05/07/2022 10:23 AM EDT DISTANCE HEALTH VISIT This Team Access Model visit is a virtual encounter. It required patient- provider interaction for the medical decision making as documented below. Rosalinda Agustin is a 41 year old female seen for follow up. OCD/JOSÉ LUIS--more anxiety of late, more agoraphobia symptoms. Doesn't want to leave home. Ran out of ativan, was working nicely. Feels like topamax is not helpful enough. GERD--needs refill on omeprazole, doing well PAST MEDICAL HISTORY Diagnosis Date Anxiety GERD (gastroesophageal reflux disease) OCD (obsessive compulsive disorder) Panic disorder Current Outpatient Medications Medication Sig omeprazole (PRILOSEC) 40 mg capsule Take 1 capsule by mouth once daily. LORazepam (ATIVAN) 2 mg tab Take 1 tablet by mouth three times daily as needed for up to 30 days. citalopram (CELEXA) 40 mg tablet Take 1 tablet by mouth once daily. topiramate (TOPAMAX) 200 mg tablet Take 1 tablet by mouth daily at bedtime. pregabalin (LYRICA) 100 mg capsule Take 1 capsule by mouth twice daily for 30 days. Cane Use daily as needed Misc Natural Product Nasal (PONARIS) soln Use 1 mL in the nose twice daily. cyanocobalamin (VITAMIN B-12) 1,000 mcg tab Take 1,000 mcg by mouth once daily. Magnesium 250 mg tab Take 250 mg by mouth once daily. fexofenadine (BALTAZAR) 180 mg tablet Take 1 tablet by mouth once daily. No current facility-administered medications for this visit. PHYSICAL EXAMINATION: VIDEO EXAM: (if done, performed via video enabled technology) GENERAL: alert and appropriate, in no distress, well-hydrated, well nourished and happy, smiling, interactive ASSESSMENT/PLAN: 1. GERD without esophagitis - ICD9: 530.81, ICD10: K21.9 - OMEPRAZOLE 40 MG CAPSULE,DELAYED RELEASE 2. Other obsessive-compulsive disorders - ICD9: 300.3, ICD10: F42.8 3. JOSÉ LUIS (generalized anxiety disorder) - ICD9: 300.02, ICD10: F41.1 Increase topamax to 200mg at bedtime - LORAZEPAM 2 MG TABLET - CITALOPRAM 40 MG TABLET - TOPIRAMATE 200 MG TABLET Alix Ríos MD [facility] Miscellaneous Notes* Telephone Encounter - Alix Ríos MD - 05/06/2022 3:33 PM EDT closing documented in [facility] History of Present illness Narrative* Alix Ríos MD - 05/06/2022 2:29 PM EDT Manually checked patient in on my end Patient was unable to join visit by 230 documented in [facility] encounter[facility] Miscellaneous Notes* Telephone Encounter - Alix Ríos MD - 02/23/2022 5:13 PM EDT The following approved medication requests have been transmitted electronically. Signed Prescriptions Disp Refills LORazepam (ATIVAN) 2 mg tab 90 tablet 0 Sig: Take 1 tablet by mouth three times daily as needed for up to 30 days. CARY Class: C-IV JULIO: No Authorizing Provider: ALIX BRUCE MD * Telephone Encounter - Brittney Bryant - 02/23/2022 3:16 PM EDT Patient has been identified by name and date of : Yes Pending Prescriptions Disp Refills LORAZEPAM 2 MG TABLET 90 tablet 0 Sig: Take 1 tablet by mouth three times daily as needed for up to 30 days. CARY Class: C-IV JULIO: No RX INSTRUCTIONS: Pt would like meds to go to [address] [place] [address]. She stated that they went to [facility] and they couldn't be transferred over the phone. Brittney Bryant [facility] History of Past illness Narrative* Problem Noted Date Resolved Date Moderate smoker (20 or less per day) 10/24/2015 03/05/2020 documented as of this encounter (statuses as of 02/23/2022) [address]03-2015 History of Past illness Narrative* Problem Noted Date Resolved Date Moderate smoker (20 or less per day) 10/24/2015 03/05/2020 documented as of this encounter (statuses as of 05/06/2022) [address]2015 History of Past illness Narrative* Problem Noted Date Resolved Date Moderate smoker (20 or less per day) 10/24/2015 03/05/2020 documented as of this encounter (statuses as of 05/06/2022) [address]2015 History of Past illness Narrative* Problem Noted Date Resolved Date Moderate smoker (20 or less per day) 10/24/2015 03/05/2020 documented as of this encounter (statuses as of 05/07/2022) [address]2015 History of Past illness Narrative* Problem Noted Date Resolved Date Moderate smoker (20 or less per day) 10/24/2015 03/05/2020 documented as of this encounter (statuses as of 05/07/2022) [address]2015 History of Past illness Narrative* Problem Noted Date Resolved Date Moderate smoker (20 or less per day) 10/24/2015 03/05/2020 documented as of this encounter (statuses as of 05/08/2022) [address]2015 History of Past illness Narrative* Problem Noted Date Resolved Date Moderate smoker (20 or less per day) 10/24/2015 03/05/2020 documented as of this encounter (statuses as of 05/18/2022) [address]2015 History of Past illness Narrative* Problem Noted Date Resolved Date Moderate smoker (20 or less per day) 10/24/2015 03/05/2020 documented as of this encounter (statuses as of 06/11/2022) [address]2015 History of Past illness Narrative* Problem Noted Date Resolved Date Moderate smoker (20 or less per day) 10/24/2015 03/05/2020 documented as of this encounter (statuses as of 07/20/2022) [address]2015 History of Past illness Narrative* Problem Noted Date Resolved Date Moderate smoker (20 or less per day) 10/24/2015 03/05/2020 documented as of this encounter (statuses as of 11/02/2022) [address]2015 History of Past illness Narrative* Problem Noted Date Resolved Date Moderate smoker (20 or less per day) 10/24/2015 03/05/2020 documented as of this encounter (statuses as of 12/01/2022) [address]2015 History of Past illness Narrative* Problem Noted Date Resolved Date Moderate smoker (20 or less per day) 10/24/2015 03/05/2020 documented as of this encounter (statuses as of 12/04/2022) [address]2015 History of Past illness Narrative* Problem Noted Date Resolved Date Moderate smoker (20 or less per day) 10/24/2015 03/05/2020 documented as of this encounter (statuses as of 12/07/2022) [address]2015 History of Past illness Narrative* Problem Noted Date Resolved Date Moderate smoker (20 or less per day) 10/24/2015 03/05/2020 documented as of this encounter (statuses as of 12/09/2022) [address]2015 History of Past illness Narrative* Problem Noted Date Resolved Date Moderate smoker (20 or less per day) 10/24/2015 03/05/2020 documented as of this encounter (statuses as of 01/01/2023) [address]2015 History of Past illness Narrative* Problem Noted Date Resolved Date Moderate smoker (20 or less per day) 10/24/2015 03/05/2020 documented as of this encounter (statuses as of 01/28/2023) [address]2015 History of Past illness Narrative* Problem Noted Date Resolved Date Moderate smoker (20 or less per day) 10/24/2015 03/05/2020 documented as of this encounter (statuses as of 02/24/2023) [address]2015 History of Past illness Narrative* Problem Noted Date Resolved Date Moderate smoker (20 or less per day) 10/24/2015 03/05/2020 documented as of this encounter (statuses as of 02/26/2023) [address]2015 History of Past illness Narrative* Problem Noted Date Resolved Date Moderate smoker (20 or less per day) 10/24/2015 03/05/2020 documented as of this encounter (statuses as of 03/23/2023) [address]2015 History of Past illness Narrative* Problem Noted Date Resolved Date Moderate smoker (20 or less per day) 10/24/2015 03/05/2020 documented as of this encounter (statuses as of 03/24/2023) [address]2015 History of Past illness Narrative* Problem Noted Date Resolved Date Moderate smoker (20 or less per day) 10/24/2015 03/05/2020 documented as of this encounter (statuses as of 04/19/2023) [address]2015 History of Past illness Narrative* Problem Noted Date Resolved Date Moderate smoker (20 or less per day) 10/24/2015 03/05/2020 documented as of this encounter (statuses as of 05/09/2023) [address]2015 History of Past illness Narrative* Problem Noted Date Diagnosed Date Resolved Date Moderate smoker (20 or less per day) 10/24/2015 03/05/2020 documented as of this encounter (statuses as of 06/25/2023) [address]2015 History of Past illness Narrative* Problem Noted Date Diagnosed Date Resolved Date Moderate smoker (20 or less per day) 10/24/2015 03/05/2020 documented as of this encounter (statuses as of 07/08/2023) [address] History of Past illness Narrative* Problem Noted Date Diagnosed Date Resolved Date Moderate smoker (20 or less per day) 10/24/2015 03/05/2020 documented as of this encounter (statuses as of 07/30/2023) [address]2015 History of Past illness Narrative* Problem Noted Date Diagnosed Date Resolved Date Moderate smoker (20 or less per day) 10/24/2015 03/05/2020 documented as of this encounter (statuses as of 08/31/2023) [address]2015 History of Past illness Narrative* Problem Noted Date Diagnosed Date Resolved Date Moderate smoker (20 or less per day) 10/24/2015 03/05/2020 documented as of this encounter (statuses as of 10/01/2023) [address]2015 History of Past illness Narrative* Problem Noted Date Diagnosed Date Resolved Date Moderate smoker (20 or less per day) 10/24/2015 03/05/2020 documented as of this encounter (statuses as of 10/05/2023) [facility] note No Information to Report [facility] [email or web address] Discharge summary No Information to Report [facility] [email or web address] Evaluation note* Diagnosis Other obsessive-compulsive disorders JOSÉ LUIS (generalized anxiety disorder) Generalized anxiety disorder documented in this encounter [facility] note* Diagnosis APPOINTMENT CANCELLED- Primary documented in this encounter [facility] note* Diagnosis GERD without esophagitis Esophageal reflux Other obsessive-compulsive disorders JOSÉ LUIS (generalized anxiety disorder) Generalized anxiety disorder documented in this encounter [facility] note* Diagnosis Bilateral foot pain Pain in limb GERD without esophagitis Esophageal reflux Other obsessive-compulsive disorders JOSÉ LUIS (generalized anxiety disorder) Generalized anxiety disorder documented in this encounter [facility] note* Diagnosis Encounter for screening mammogram for breast cancer documented in this encounter [facility] note* Diagnosis Other obsessive-compulsive disorders JOSÉ LUIS (generalized anxiety disorder) Generalized anxiety disorder Bilateral foot pain Pain in limb GERD without esophagitis Esophageal reflux documented in this encounter [facility] noteNo assessment information availableCoC[facility] Work Phone: evaluation note* Diagnosis Other obsessive-compulsive disorders JOSÉ LUIS (generalized anxiety disorder) Generalized anxiety disorder documented in this encounter [facility] note No Information to Report [facility] [email or web address] [facility] Evaluation note* Diagnosis Bilateral foot pain Pain in limb Other obsessive-compulsive disorders JOSÉ LUIS (generalized anxiety disorder) Generalized anxiety disorder documented in this encounter [facility] note* Diagnosis Bilateral foot pain Pain in limb Other obsessive-compulsive disorders JOSÉ LUIS (generalized anxiety disorder) Generalized anxiety disorder GERD without esophagitis Esophageal reflux documented in this encounter [facility] note* Diagnosis Other obsessive-compulsive disorders- Primary JOSÉ LUIS (generalized anxiety disorder) Generalized anxiety disorder GERD without esophagitis Esophageal reflux Bilateral foot pain Pain in limb documented in this encounter [facility] note* Diagnosis Encounter for social work intervention- Primary documented in this encounter [facility] note* Diagnosis Other obsessive-compulsive disorders JOSÉ LUIS (generalized anxiety disorder) Generalized anxiety disorder documented in this encounter [facility] note* Diagnosis Bilateral foot pain Pain in limb documented in this encounter [facility] note* Diagnosis Bilateral foot pain Pain in limb documented in this encounter [facility] note* Diagnosis Other obsessive-compulsive disorders JOSÉ LUIS (generalized anxiety disorder) Generalized anxiety disorder documented in this encounter [facility] note* Diagnosis Other obsessive-compulsive disorders JSOÉ LUIS (generalized anxiety disorder) Generalized anxiety disorder documented in this encounter [facility] note* Diagnosis Encounter for screening mammogram for breast cancer documented in this encounter [facility] note* Diagnosis GERD without esophagitis Esophageal reflux Other obsessive-compulsive disorders JOSÉ LUIS (generalized anxiety disorder) Generalized anxiety disorder Bilateral foot pain Pain in limb documented in this encounter [facility] note* Diagnosis Other obsessive-compulsive disorders JOSÉ LUIS (generalized anxiety disorder) Generalized anxiety disorder Bilateral foot pain Pain in limb GERD without esophagitis Esophageal reflux Sore throat Acute pharyngitis Cough Nasal congestion Other diseases of nasal cavity and sinuses Sinus congestion Other diseases of nasal cavity and sinuses documented in this encounter [facility] note* Diagnosis JOSÉ LUIS (generalized anxiety disorder)- Primary Generalized anxiety disorder Other obsessive-compulsive disorders Chronic insomnia Insomnia, unspecified Palpitations Syncope, unspecified syncope type Polyarthralgia Pain in joint, multiple sites Other specified hearing loss of both ears [facility] No Information to Report [email or web address] Procedure note No Information to Report [facility] [employer] [facility] Progress note No Information to Report [facility] [email or web address] Reason for referral (narrative)* Diagnostic Procedure Only (Routine) - Pending Review Specialty Diagnoses / Procedures Referred By Emerita t Referred To Contact [facility] Diagnoses Encounter for screening mammogram for breast cancer Procedures YONAS SCREENING SCREENING MAMMOGRAPHY BI 2-VIEW BREAST INC CAD Alix Bruce MD [address] [place] [address] [facility] [address] [place] [address] Referral ID Status Reason Start Date Expiration Date Visits Requested Visits Authorized [id number] Pending Review Auto-Generat ed Referral 05/13/2022 06/12/2023 1 1 [facility] Diagnostic Procedure Only (Routine) - Pending Review Specialty Diagnoses / Procedures Referred By Emerita lyons Referred To Contact [facility] Diagnoses Encounter for screening mammogram for breast cancer Procedures YONAS SCREENING SCREENING MAMMOGRAPHY BI 2-VIEW BREAST INC CAD Alix Bruce MD [address] [place] [address] [facility] [address] [place] [address] Referral ID Status Reason Start Date Expiration Date Visits Requested Visits Authorized [id number] Pending Review Auto-Generat ed Referral 04/14/2023 05/13/2024 1 1 [facility] Summary Purpose Family History No Family History Records Found Mother Name Dates Details Family history non-contribut ory(V49.89, Z78.9) Status:Active Father Name Dates Details Family history non-contribut ory(V49.89, Z78.9) Status:Active Mother Name Dates Details Family history non-contribut ory(V49.89, Z78.9) Status:Active Father Name Dates Details Family history non-contribut ory(V49.89, Z78.9) Status:Active Advance Directives No Advanced Directives Records FoundNo Advanced Directives Records FoundNo Advanced Directives Records FoundNo Advanced Directives Records FoundNo Advanced Directives Records Found Chief Complaint and Reason for Visit Chief Complaint LT LEG POCKET OF LIQ UID /FLUID UPPER Chief Complaint PANIC ATTACK AND SEI ZURE LAST NIGHT Reason for Referral Specialty Diagnoses / Procedures Referred By Emerita lyons Referred To Contact Diagnoses Other specified hearing loss of both ears Procedures HEARING TEST/AUDIOGRAM COMPRE AUDIOMETRY THRESHOLD EVAL SP Alix Jarrell MD [address] [place] [address] [facility] [address] [place] [address] Referral ID Status Reason Start Date Expiration Date Visits Requested Visits Authorized [id number] Pending Review Auto-Generat ed Referral 3 01/02/2024 1 1 Specialty Diagnoses / Procedures Referred By Contac t Referred To Contact XR IMAGING Diagnoses Polyarthralgia Procedures XR HAND GENERAL 3V PA/LAT/OBL BILATERAL RADEX HAND MINIMUM 3 VIEWS Alix Bruce MD [address] [place] [phone] Xr Imaging [place] [address] Referral ID Status Reason Start Date Expiration Date Visits Requested Visits Authorized [id number] Pending Review Auto-Generat ed Referral 3 11/02/2024 1 1 Specialty Diagnoses / Procedures Referred By Contac t Referred To Contact Cardiology Diagnoses Palpitations Syncope, unspecified syncope type Procedures CONSULT TO CARDIOLOGY OFFICE/OUTPATIENT [facility] 60-74 MINUTES Alix Bruce MD [address] [place] [phone] Referral ID Status Reason Start Date Expiration Date Visits Requested Visits Authorized [id number] Authorized PCP Requested Referral 3 10/03/2024 1 1 Additional Source Comments INFORMATION SOURCE (unrecogn ized section and content) DATE CREATED AUTHOR AUTHOR'S ORGANIZ ATION 07/23/2020 [facility] DATE CREATED AUTHOR AUTHOR'S ORGANIZ ATION 09/24/2022 [facility] DATE CREATED AUTHOR AUTHOR'S ORGANIZ ATION 06/25/2023 [facility] DATE CREATED AUTHOR AUTHOR'S ORGANIZ ATION 12/09/2023 [facility] Source Comments (unrecognize d section and content) In the event this informatio n is protected by the Federal Confidentiality of Alcohol and Drug Abuse Patient Records regulations: The Federal rules restrict any use of the information to criminally investigate or prosecute any alcohol or drug abuse patient.[facility] the event this information is protected by the Federal Confidentiality of Alcohol and Drug Abuse Patient Records regulations: The Federal rules restrict any use of the information to criminally investigate or prosecute any alcohol or drug abuse patient.[facility] the event this information is protected by the Federal Confidentiality of Alcohol and Drug Abuse Patient Records regulations: The Federal rules restrict any use of the information to criminally investigate or prosecute any alcohol or drug abuse patient.[facility] the event this information is protected by the Federal Confidentiality of Alcohol and Drug Abuse Patient Records regulations: The Federal rules restrict any use of the information to criminally investigate or prosecute any alcohol or drug abuse patient.[facility] the event this information is protected by the Federal Confidentiality of Alcohol and Drug Abuse Patient Records regulations: The Federal rules restrict any use of the information to criminally investigate or prosecute any alcohol or drug abuse patient.[facility] the event this information is protected by the Federal Confidentiality of Alcohol and Drug Abuse Patient Records regulations: The Federal rules restrict any use of the information to criminally investigate or prosecute any alcohol or drug abuse patient.[facility] the event this information is protected by the Federal Confidentiality of Alcohol and Drug Abuse Patient Records regulations: The Federal rules restrict any use of the information to criminally investigate or prosecute any alcohol or drug abuse patient.[facility] the event this information is protected by the Federal Confidentiality of Alcohol and Drug Abuse Patient Records regulations: The Federal rules restrict any use of the information to criminally investigate or prosecute any alcohol or drug abuse patient.[facility] the event this information is protected by the Federal Confidentiality of Alcohol and Drug Abuse Patient Records regulations: The Federal rules restrict any use of the information to criminally investigate or prosecute any alcohol or drug abuse patient.[facility] the event this information is protected by the Federal Confidentiality of Alcohol and Drug Abuse Patient Records regulations: The Federal rules restrict any use of the information to criminally investigate or prosecute any alcohol or drug abuse patient.[facility] the event this information is protected by the Federal Confidentiality of Alcohol and Drug Abuse Patient Records regulations: The Federal rules restrict any use of the information to criminally investigate or prosecute any alcohol or drug abuse patient.[facility] the event this information is protected by the Federal Confidentiality of Alcohol and Drug Abuse Patient Records regulations: The Federal rules restrict any use of the information to criminally investigate or prosecute any alcohol or drug abuse patient.[facility] Hospital[facility] the event this information is protected by the Federal Confidentiality of Alcohol and Drug Abuse Patient Records regulations: The Federal rules restrict any use of the information to criminally investigate or prosecute any alcohol or drug abuse patient.[facility] the event this information is protected by the Federal Confidentiality of Alcohol and Drug Abuse Patient Records regulations: The Federal rules restrict any use of the information to criminally investigate or prosecute any alcohol or drug abuse patient.[facility] the event this information is protected by the Federal Confidentiality of Alcohol and Drug Abuse Patient Records regulations: The Federal rules restrict any use of the information to criminally investigate or prosecute any alcohol or drug abuse patient.[facility] Hospital[facility] the event this information is protected by the Federal Confidentiality of Alcohol and Drug Abuse Patient Records regulations: The Federal rules restrict any use of the information to criminally investigate or prosecute any alcohol or drug abuse patient.[facility] Hospital[facility] the event this information is protected by the Federal Confidentiality of Alcohol and Drug Abuse Patient Records regulations: The Federal rules restrict any use of the information to criminally investigate or prosecute any alcohol or drug abuse patient.[facility] Hospital[facility] the event this information is protected by the Federal Confidentiality of Alcohol and Drug Abuse Patient Records regulations: The Federal rules restrict any use of the information to criminally investigate or prosecute any alcohol or drug abuse patient.[facility] Hospital[facility] the event this information is protected by the Federal Confidentiality of Alcohol and Drug Abuse Patient Records regulations: The Federal rules restrict any use of the information to criminally investigate or prosecute any alcohol or drug abuse patient.[facility] HospitalIn the event this information is protected by the Federal Confidentiality of Alcohol and Drug Abuse Patient Records regulations: The Federal rules restrict any use of the information to criminally investigate or prosecute any alcohol or drug abuse patient.[facility] HospitalIn the event this information is protected by the Federal Confidentiality of Alcohol and Drug Abuse Patient Records regulations: The Federal rules restrict any use of the information to criminally investigate or prosecute any alcohol or drug abuse patient.[facility] HospitalIn the event this information is protected by the Federal Confidentiality of Alcohol and Drug Abuse Patient Records regulations: The Federal rules restrict any use of the information to criminally investigate or prosecute any alcohol or drug abuse patient.[facility] HospitalIn the event this information is protected by the Federal Confidentiality of Alcohol and Drug Abuse Patient Records regulations: The Federal rules restrict any use of the information to criminally investigate or prosecute any alcohol or drug abuse patient.[facility] HospitalIn the event this information is protected by the Federal Confidentiality of Alcohol and Drug Abuse Patient Records regulations: The Federal rules restrict any use of the information to criminally investigate or prosecute any alcohol or drug abuse patient.[facility] HospitalIn the event this information is protected by the Federal Confidentiality of Alcohol and Drug Abuse Patient Records regulations: The Federal rules restrict any use of the information to criminally investigate or prosecute any alcohol or drug abuse patient.[facility] HospitalIn the event this information is protected by the Federal Confidentiality of Alcohol and Drug Abuse Patient Records regulations: The Federal rules restrict any use of the information to criminally investigate or prosecute any alcohol or drug abuse patient.[facility] HospitalIn the event this information is protected by the Federal Confidentiality of Alcohol and Drug Abuse Patient Records regulations: The Federal rules restrict any use of the information to criminally investigate or prosecute any alcohol or drug abuse patient.[facility] HospitalIn the event this information is protected by the Federal Confidentiality of Alcohol and Drug Abuse Patient Records regulations: The Federal rules restrict any use of the information to criminally investigate or prosecute any alcohol or drug abuse patient.[facility] Reason for Visit (unrecogniz ed section and content) Reason Comments Telemedicine Reason Onset Date Comments Refill Request 05/08/2022 Reason Comments Refill Request Reason Onset Date Comments Refill Request 11/02/2022 Reason Onset Date Comments Refill Request 12/01/2022 Reason Onset Date Comments Refill Request 01/01/2023 Reason Onset Date Comments Refill Request 02/24/2023 Reason Onset Date Comments Refill Request 02/25/2023 Reason Comments Medication Problem Reason Onset Date Comments Refill Request 03/24/2023 Reason Onset Date Comments Refill Request 06/25/2023 Reason Onset Date Comments Refill Request 08/23/2023 Reason Comments Appointment Confirmation Reason Comments Refill Request Care Teams (unrecognized sec tion and content) [employer]er [employer]rup Relationship Specialty Start Date End Date Alix Bruce MD [address] [place] [address] PCP - General Internal Medicine 06/06/15 Cooker Syrup Relationship Specialty Start Date End Date Alix Bruce MD [address] [place] [address] 77296 PCP - General Internal Medicine 06/06/15 Cooker Syrup Relationship Specialty Start Date End Date Alix Bruce MD [address] [place] [address] 90833 PCP - General Internal Medicine 06/06/15 [employer]er Syrup Relationship Specialty Start Date End Date Alix Bruce MD [address] [place] [address] 68419 PCP - General Internal Medicine 06/06/15 [employer]er Syrup Relationship Specialty Start Date End Date Alix Bruce MD [address] [place] [address] 00791 PCP - General Internal Medicine 06/06/15 Cooker Syrup Relationship Specialty Start Date End Date Alix Bruce MD [address] [place] [address] 43283 PCP - General Internal Medicine 06/06/15 Cooker Syrup Relationship Specialty Start Date End Date Alix Bruce MD [address] [place] [address] 70723 PCP - General Internal Medicine 06/06/15 Team Status: Active Member Role Status Dates [facility]. PHYSICIAN Primary Care Provider Active Sta rt: June 28, 2022 DORIS RÍOS Other Provider Active Star t: June 28, 2022 CORY FLOR MD Emergency Provider Active Start: June 28, 2022 SHELLEY PELAEZ next of kin Active Team Status: Active Member Role Status Dates DORIS RÍOS Other Provider Active Star t: June 28, 2022 CORY FLOR MD Emergency Provider Active Start: June 28, 2022 ALIX READ Primary Care Provider Active Start: June 28, 2022 SHELLEY PELAEZ next of kin Active [employer]er Syrup Relationship Specialty Start Date End Date Alix Bruce MD [address] [place] [address] 67684 PCP - General Internal Medicine 06/06/15 Team Status: Active Member Role Status Dates ALIX READ Primary Care Provider Active Start: September 23, 2022 PATRICIA BEE MD Emergency Provider Active St art: September 23, 2022 SHELLEY PELAEZ next of kin Active [employer]er Sy[employer] Relationship Specialty Start Date End Date Alix Bruce MD [address] [place] [address] PCP - General Internal Medicine 06/06/15 [employer]er Syrup Relationship Specialty Start Date End Date Alix Bruce MD [address] [place] [address] 48409 PCP - General Internal Medicine 06/06/15 Cooker Syrup Relationship Specialty Start Date End Date Alix Bruce MD [address] [place] [address] 07693 PCP - General Internal Medicine 06/06/15 Cooker Syrup Relationship Specialty Start Date End Date Alix Bruce MD [address] [address] PCP - General Internal Medicine 06/06/15 Cooker Syrup Relationship Specialty Start Date End Date Alix Bruce MD [address] [place] [address] 6[address]33 PCP - General Internal Medicine 06/06/15 Cooker Syrup Relationship Specialty Start Date End Date Alix Bruce MD [address] [place] [address] 07143 PCP - General Internal Medicine 06/06/15 Cooker Syrup Relationship Specialty Start Date End Date Alix Bruce MD [address] [place] [address] 54457 PCP - General Internal Medicine 06/06/15 Cooker Syrup Relationship Specialty Start Date End Date Alix Bruce MD [address] [place] [address] 23539 PCP - General Internal Medicine 06/06/15 Cooker Syrup Relationship Specialty Start Date End Date Alix Bruce MD [address] [place] [address] 87114 PCP - General Internal Medicine 06/06/15 Cooker Syrup Relationship Specialty Start Date End Date Alix Bruce MD [address] [place] [address] 98773 PCP - General Internal Medicine 06/06/15 Goals (unrecognized section and content) Goals may be documented in a n alternate sectionGoals may be documented in an alternate section No Information to Report No Information to ReportGoals may be documented in an alternate section No Information to Report FOR RECORDS PERTAINING TO PATIENTS WHO ARE OR HAVE BEEN ENROLLED IN A CHEMICAL DEPENDENCY/SUBSTANCEABUSE PROGRAM, SOME INFORMATION MAY BE OMITTED. This clinical summary was aggregated from multiple sources. Caution should be exercised in using it in the provision of clinical care. This summary normalizes information from multiple sources, and as a consequence, information in this document may materially change the coding, format and clinical context of patient data. In addition, data may be omitted in some cases. CLINICAL DECISIONS SHOULD BE BASED ON THE PRIMARY CLINICAL RECORDS. [employer] provides no warranty or guarantee of the accuracy or completeness of information in this document.
[2023-12-18 14:51] VITALS: BP 99/68; PULSE 59; RESP 15; O2SAT 100
[2023-12-18 15:06] LABS: Absolute Lymphocyte Count 1.04 X10^3/uL (0.83-4.51); Absolute Neutrophil Count 2.7 X10^3/uL (2.0-7.7); Basophil# 0.02 X10^3/uL; Basophil% 0.4 % (0-1); Eosinophil# 0.49 X10^3/uL; Eosinophils% 10.9 % (0-5); Hematocrit 37.7 % (37-47); Hemoglobin 12.5 g/dL (12.0-15.0); Lymphocyte # 1.04 X10^3/ul (0.83-4.51); Lymphocyte % 23.2 % (19-41); Mean Corp Hgb Conc 33.2 g/dL (32-36); Mean Corpuscular Hgb 30.6 pg (27.0-32.0); Mean Corpuscular Volume 92.2 fL (81-99); Mean Platelet Vol. 10.9 fl (6.2-12.0); Monocyte# 0.24 X10^3/uL; Monocyte% 5.4 % (0-10); NRBC Flagged by Analyzer 0 % (0-5); Neutrophil # 2.68 X10^3/uL (2.7-7.7); Neutrophil % 59.9 % (47-70); Platelet Count 219 K/mm3 (150-450); RBC Distribution Width CV 12.4 % (11.6-14.6); RBC Distribution Width SD 41.9 fl (35.1-43.9); Red Blood Count 4.09 M/mm3 (4.2-5.4); White Blood Count 4.5 K/mm3 (4.4-11.0)
[2023-12-18 15:21] LABS: Anion Gap 0 (5-15); BUN 11 mg/dL (7-18); BUN/Creat Ratio 14.7 RATIO (10-20); Calcium,Total 8.7 mg/dL (8.5-10.1); Chloride 114 mmol/L (98-107); Creatinine, Serum 0.75 mg/dL (0.55-1.02); EST Glomerular Filtration Rate 89 mL/min (>60); Est Glom Filt Rate - Afr Amer 108 mL/min (>60); Estimated Creatinine Clearance 98.99 ml/min; Glucose 105 mg/dL (74-106); Potassium 3.8 mmol/L (3.5-5.1); Sodium Level 140 mmol/L (136-145); Troponin-I HS 5 pg/mL (3.0-54.0)
--- NOTE | 2023-12-18 16:13 | EX.ED.DYSGE1 ---
HPI History of Present Illness Chief Complaint: Syncope [facility] Medical History Anxiety Arthritis PTSD (post-traumatic stress disorder) Home Medications aripiprazole 20 mg tablet (Abilify) 40 mg PO DAILY 12/18/23 [History Last Taken Unknown] clonazepam 1 mg tablet 1 mg PO DAILY 12/18/23 [History Last Taken Unknown] Allergy/AdvReac Type Severity Reaction Status Date / Time lactose Allergy Upset Verified 12/18/23 14:04 Stomach Surgical History H/O foot surgery Social History household members: significant other Smoking Status: Current every day smoker tobacco type: cigarettes details: Not recently. substance use type: marijuana and methamphetamine EXAM Physical Exam Const Vital Signs: 12/18/23 14:04 12/18/23 14:29 12/18/23 14:39 Temperature 96.6 F L Temperature Source Temporal Pulse Rate 59 L Respiratory Rate 18 Respiratory Pattern Normal Blood Pressure 102/67 Blood Pressure Mean 78 Pulse Ox 100 Oxygen Delivery Method Room Air Room Air 12/18/23 14:51 Temperature Temperature Source Pulse Rate 59 L Respiratory Rate 15 Respiratory Pattern Blood Pressure 99/68 Blood Pressure Mean 78 Pulse Ox 100 Oxygen Delivery Method Nasal Cannula MDM MDM MDM Narrative Medical decision making narrative: 43-year-old with diarrhea and syncope. She has had syncopal events before in the past of unspecific cause. Syncopal event was actually 2 days ago. She has had loose stools since then. Denies abdominal pain. No chest pain. No headache. No shortness of breath. Physical exam is benign. Multiple repeat exams the last being at 4:15 PM patient clinically looks well. Vital signs are stable. After liter of fluid her blood pressure was 119/72. She will be discharged home. History & Record Review Discussion w/independent historian: Patient Additional record(s) reviewed:: Prior inpatient record, Prior outpatient record, Prior ED visit and Prior labs Lab Data Attestation: I reviewed the patient's lab results. Lab results narrative: CBC normal. White count of 4. H&H 12.5 and 37. Platelets 219. Electrolytes show a gap of 0. Normal BUN and creatinine. Glucose 105. Troponin normal at 5. COVID, flu and RSV all negative. Labs: Laboratory Results - last 24 hr 12/18/23 14:45 WBC 4.5 RBC 4.09 L Hgb 12.5 Hct 37.7 MCV 92.2 MCH 30.6 MCHC 33.2 RDW Std Deviation 41.9 RDW Coeff of Grace 12.4 Plt Count 219 MPV 10.9 Immature Gran % (Auto) 0.200 Neut % (Auto) 59.9 Lymph % (Auto) 23.2 Hyde % (Auto) 5.4 Eos % (Auto) 10.9 H Baso % (Auto) 0.4 Absolute Neuts (auto) 2.7 Absolute Lymphs (auto) 1.04 Nucleated RBC % 0 Sodium 140 Potassium 3.8 Chloride 114 H Carbon Dioxide 26.0 Anion Gap 0 L BUN 11 Creatinine 0.75 Estim Creat Clear Calc 98.99 Est GFR (MDRD) Af Amer 108 Est GFR (MDRD) Non-Af 89 BUN/Creatinine Ratio 14.7 Glucose 105 Calcium 8.7 Troponin I High Sens 5 Radiography Chest X-Ray - ED: 1 View, Read by ED Physician, Read by Radiologist, Heart, Lungs, Mediastinum, Bony Structures, No Acute Disease and Chronic Changes Diagnostic Testing: Clinical Impression(s) from Imaging Studies Chest X-Ray 12/18/23 14:24 IMPRESSION: No radiographic evidence of acute cardiopulmonary disease. Electronically Signed: Nella Elena MD at 15:47 EST Reading Location ID and State: [address] [place] [address] Tel , Service support , Chest x-ray, portable, single view interpreted by myself and radiologist shows no acute abnormality. Normal cardiac silhouette. Normal lung modi. Rhythm Strip Rhythm Strip: Sinus bradycardia Rate: 57 Ectopy: None EKG Initial EKG: Attestation: I personally reviewed and interpreted this EKG as follows: Interpretation: Sinus Rhythm, No Acute Injury Pattern and Sinus Bradycardia Comments: Sinus bradycardia no acute signs of ID or ischemia. No block. Rate of 57. Discharge Plan Triage Chief Complaint: Syncope ED Provider: Ian Law Dx/Rx/DC Orders Clinical Impression: Syncope, Diarrhea Instructions: ED Fainting, Uncertain Cause Prescriptions: No Action aripiprazole [Abilify] 20 mg tablet 40 mg PO DAILY clonazepam 1 mg tablet 1 mg PO DAILY Primary Care Provider: Care Physician,No Primary Referrals: He Boland MD [Med Staff - Medical Surgical Tech] - 1 Week if not improving NOT,DEFINED [Non-Staff] - Activity Restrictions/Additional Instructions: Plenty of fluids and rest. If the diarrhea does not improve you may start using Imodium. Follow-up with your doctor or the doctor assigned to if you are not improving. Your labs today EKG and chest x-ray were all unremarkable. Disposition Disposition: Home, Self Care
== END 2023-12-18 18:18 | disposition home or self-care (01) ==
PROVIDERS: Emergency Provider Emergency Medicine; Visit Provider Emergency Medicine
DX: R55 Syncope and collapse (principal); R19.7 Diarrhea, unspecified; F17.210 Nicotine dependence, cigarettes, uncomplicated; F12.90 Cannabis use, unspecified, uncomplicated
CPT/HCPCS: 71045; 80048; 84484; 85025; 87631; 93005; 96360; 99284; J7030

== ENCOUNTER 2024-01-27 12:55 | Emergency (ER) | payer MEDICAID, SELFPAY ==
[2024-01-27 12:56] VITALS: BP 125/91; PULSE 52; RESP 14; TEMP 36.8; O2SAT 100
--- NOTE | 2024-01-27 14:38 | ED.RN ---
THIS RN CALLED FOR PT TO TAKE HER BACK TO A ROOM AT 1415 WITH NO RESPONSE. WAITING ROOM, HALLWAY AND IMMEDIATE VESTIBULE AREA CHECKED WITHOUT ANY RESPONSE FROM THE PATIENT. THIS RN CALLED FOR PT AGAIN AT 1420 WHEN THE NEXT ROOM OPENED. SAME ABSENT RESPONSE. PT MARKED LWBS.
[2024-01-27 15:24] VITALS: BMI 23.8
--- NOTE | 2024-01-27 15:44 | EKG12_ITS ---
Test Reason : PSYCH Blood Pressure : / mmHG Vent. Rate : 054 BPM Atrial Rate : 054 BPM P-R Int : 160 ms QRS Dur : 068 ms QT Int : 442 ms P-R-T Axes : 040 006 035 degrees QTc Int : 419 ms Sinus bradycardia Low voltage QRS Borderline ECG Confirmed by Solomon Kinsey ([id number]), online editor MEET BLEDSOE ([id number]) on 01/31/2024 1:58:41 PM Referred By: Confirmed By:Solomon Kinsey
--- NOTE | 2024-01-27 15:44 | CT_ITS ---
6 STUDY: CT BRAIN WITHOUT CONTRAST REASON FOR EXAM: Female, 43 years old. pituitary tumor hallucinations RADIATION DOSAGE (If Supplied By Facility): CTDIvol = ( 44.99 ) mGy, DLP = ( 829.85 ) mGycm TECHNIQUE: Transaxial CT imaging of the brain was performed without administration of intravenous contrast material. Individualized dose optimization techniques were used for this CT. COMPARISON: 03/24/2023 FINDINGS: Normal soft tissue structures. Normal calvarium. Normal size ventricles and extra-axial spaces for the patient''s age. Normal white matter tracts of the cerebral hemispheres. Normal basal ganglia and thalami. Normal brainstem. Normal cerebellum. There is no intracranial hemorrhage. There are no findings of an acute ischemic infarction. Normal visualized paranasal sinuses. CT/Brain/Head without Contrast IMPRESSION: Normal unenhanced CT scan of the brain. Electronically Signed: Alfred Trammell MD at 16:22 EST ,
--- NOTE | 2024-01-27 15:45 | EX.ED.VIS.PS ---
HPI HPI - Psych History of Present Illness Chief Complaint: Mental Health Informant: patient Narrative Narrative: 43-year-old female presenting to the emergency room with the chief complaint of auditory hallucinations. Patient states that she is originally from [place] but lives here in [place]. She is currently staying at the senior care . She states that since her teenage years she has had auditory hallucinations. The became more intense as an adult. She states her primary care doctor is treating her for anxiety and depression. She states that they have talked about hallucinations is felt that perhaps she had schizoaffective disorder. She states that in the past several months the voices have not changed. She denies any suicidal ideation or plan. She states the voices are not affecting her daily routines. She has rare recreational cannabis use-last use 1 week ago. She states that she was advised by the staff at the senior care to come be evaluated. [facility] Medical History Anxiety Arthritis PTSD (post-traumatic stress disorder) Home Medications aripiprazole 20 mg tablet (Abilify) 40 mg PO DAILY 12/18/23 [History Last Taken Unknown] clonazepam 1 mg tablet 1 mg PO DAILY 12/18/23 [History Last Taken Unknown] cyanocobalamin (vitamin B-12) 1,000 mcg tablet 1,000 mcg PO DAILY 01/27/24 [History Last Taken Unknown] duloxetine 20 mg capsule,delayed release 20 mg PO DAILY 01/27/24 [History Last Taken Unknown] magnesium oxide 250 mg PO DAILY 01/27/24 [History Last Taken Unknown] omeprazole 40 mg capsule,delayed release 40 mg PO DAILY 01/27/24 [History Last Taken Unknown] pregabalin 100 mg capsule 100 mg PO DAILY 01/27/24 [History Last Taken Unknown] topiramate 200 mg tablet 200 mg PO QHS 01/27/24 [History Last Taken Unknown] Allergy/AdvReac Type Severity Reaction Status Date / Time lactose Allergy Upset Verified 01/27/24 12:56 Stomach Surgical History H/O foot surgery Social History household members: significant other Smoking Status: Light Smoker (<10/day) details: Not recently. substance use type: marijuana and methamphetamine ROS ROS ED Constitutional Constitutional ED: Denies chills or weight loss Eyes Eyes: Denies change in vision or diplopia ENT ENT ED: Denies ear pain, rhinorrhea or sore throat Cardiovascular Cardiovascular: Denies chest pain, orthopnea, palpitations or racing heartbeat Respiratory/Chest Respiratory/Chest: Denies cough, dyspnea or orthopnea Gastrointestinal Gastrointestinal: Denies abdominal pain, diarrhea, nausea or vomiting Genitourinary Genitourinary ED: Denies dysuria, hematuria or urinary frequency Musculoskeletal Musculoskeletal: Denies arthralgias or myalgias Integumentary Denies abscess or rash Neurologic Neurologic: Denies headache(s) or weakness Psychiatric Psychiatric: Reports anxiety, depression and other Details: Auditory hallucinations ; Denies suicidal ideation or suicidal thoughts Endocrine Endocrinology: Denies polydipsia, polyphagia or polyuria Allergic/Immunologic Allergic/Immunologic ED: Denies mouth swelling, tongue swelling or urticaria EXAM Physical Exam Const Vital Signs: 01/27/24 12:56 01/27/24 17:39 01/27/24 18:09 Temperature 98.2 F 98.4 F Temperature Source Temporal Temporal Pulse Rate 52 L 87 54 L Respiratory Rate 14 17 20 H Blood Pressure 125/91 H 107/67 Blood Pressure Mean 102 80 Pulse Ox 100 100 100 Oxygen Delivery Method Room Air Room Air Room Air Positive well nourished and well developed General Appearance ED: well developed HEENT Reports normocephalic, head/scalp atraumatic and moist mucous membranes Eyes PERRL and EOMs intact bilaterally Eyes Narrative: No exophthalmos Neck no lymphadenopathy, supple and no JVD Neck Narrative: No obvious goiter. Resp normal respiratory effort and clear to auscultation bilaterally Cardio regular rate, regular rhythm and no murmurs GI normal to inspection, nondistended, normoactive bowel sounds and non-tender Palpation: soft Back/Spine no CVA tenderness and normal ROM Extremity normal to inspection General Extremety ED: Negative for edema General Extremity: Negative for edema Neuro oriented x3 and CN's II-XII intact bilaterally Sensorium / Orientation: alert Motor Exam: strength 5/5 throughout Psych mental status grossly normal Appearance: grossly normal Attitude: calm, engaged, No paranoid, No withdrawn, No bizarre and No uncooperative Activity / Motor Behavior: appropriate eye contact Speech: normal speech Mood & Affect: Negative for depressed or tearful Thought Content: hallucination(s) Positive for auditory, rumination(s) and other Persucatory beliefs Attention / Concentration: attention grossly intact Insight: poor Judgement: limited Skin no rashes or lesions noted and no wounds MDM MDM MDM Narrative Medical decision making narrative: CT the brain shows no acute process. Basic blood work showed a white count of 3.7 hemoglobin 12.5 platelet count of 193. Alcohol is negative. Normal TSH. Normal liver panel. BMP normal. Patient assessed by crisis. Crisis got a different story but more in depth than what the patient was telling me. Was reported that she had a suicide gesture or attempt last week. The patient tells me she is on clonazepam and citalopram but that is different than what I am seeing in the computer. I think that there is parts of her story that are concerning and I am limited to what I can have access to tonight. I think it is appropriate that we try to admit her to psychiatric facility. History & Record Review Discussion w/independent historian: Patient Lab Data Attestation: I reviewed the patient's lab results. Labs: Laboratory Results - last 24 hr 01/27/24 01/27/24 16:00 17:35 WBC 3.7 L RBC 4.11 L Hgb 12.5 Hct 37.8 MCV 92.0 MCH 30.4 MCHC 33.1 RDW Std Deviation 46.0 H RDW Coeff of Grace 13.5 Plt Count 193 MPV 10.6 Immature Gran % (Auto) 0.300 Neut % (Auto) 53.6 Lymph % (Auto) 32.6 [place] % (Auto) 8.9 Eos % (Auto) 3.8 Baso % (Auto) 0.8 Absolute Neuts (auto) 2.0 Absolute Lymphs (auto) 1.21 Nucleated RBC % 0 Sodium 137 Potassium 3.8 Chloride 107 Carbon Dioxide 24.0 Anion Gap 6 BUN 8 Creatinine 0.76 Estim Creat Clear Calc 97.69 Est GFR (MDRD) Af Amer 105 Est GFR (MDRD) Non-Af 87 BUN/Creatinine Ratio 10.5 Glucose 81 Calcium 8.6 Total Bilirubin 0.40 Direct Bilirubin 0.13 AST 15 ALT 20 Alkaline Phosphatase 57 Total Protein 7.0 Albumin 3.7 Globulin 3.3 TSH 3.74 Urine Color Yellow Urine Clarity Clear Urine pH 7.0 Ur Specific [place] 1.005 Urine Protein Negative Urine Glucose (UA) Normal Urine Ketones Negative Urine Occult Blood Negative Urine Nitrite Negative Urine Bilirubin Negative Urine Urobilinogen Normal Ur Leukocyte Esterase Negative Urine RBC 0 SEEN Urine WBC 0 SEEN Ur Squamous Epith Cells 0-5 SEEN Urine Bacteria RARE Urine Mucus 0 SEEN Urine Test Negative Urine Opiates Screen NEGATIVE Urine Methadone Screen NEGATIVE Ur Barbiturates Screen NEGATIVE Ur Phencyclidine Scrn NEGATIVE Ur Amphetamines Screen NEGATIVE MDMA (Ecstasy) Screen NEGATIVE U Benzodiazepines Scrn NEGATIVE Urine Cocaine Screen NEGATIVE U Cannabinoids Screen NEGATIVE Ur Drug Screen Comment Ethyl Alcohol < 3.0 Radiography Diagnostic Testing: Clinical Impression(s) from Imaging Studies Brain CT 01/27/24 15:44 IMPRESSION: Normal unenhanced CT scan of the brain. Electronically Signed: Alfred Trammell MD at 16:22 EST , EKG Initial EKG: Attestation: I personally reviewed and interpreted this EKG as follows: Comments: Sinus bradycardia ventricular rate of 54 bpm. No concerning features of ACS noted. No significantly prolonged QT interval noted Discharge Plan Triage Chief Complaint: Mental Health ED Provider: Damon Munguia Dx/Rx/DC Orders Clinical Impression: Depression, Auditory hallucinations Prescriptions: No Action aripiprazole [Abilify] 20 mg tablet 40 mg PO DAILY clonazepam 1 mg tablet 1 mg PO DAILY topiramate 200 mg tablet 200 mg PO QHS Patient Comments: Take 1 tablet by mouth daily at bedtime. duloxetine 20 mg capsule,delayed release(DR/EC) 20 mg PO DAILY Patient Comments: TAKE 1 CAPSULE BY MOUTH DAILY FOR 7 DAYS then INCREASE to 1 (ONE) capsule TWICE DAILY cyanocobalamin (vitamin B-12) 1,000 mcg tablet 1,000 mcg PO DAILY Patient Comments: Take 1 tablet by mouth once daily. pregabalin 100 mg capsule 100 mg PO DAILY Patient Comments: Take 1 capsule by mouth two times a day for 180 days. omeprazole 40 mg capsule,delayed release(DR/EC) 40 mg PO DAILY Patient Comments: Take 1 capsule by mouth once daily. magnesium oxide 250 mg magnesium tablet 250 mg PO DAILY Patient Comments: Take 1 tablet by mouth once daily. Primary Care Provider: Care Physician,No Primary Referrals: Care Physician,No Primary [Primary Care Provider] -
[2024-01-27 16:14] LABS: Absolute Lymphocyte Count 1.21 X10^3/uL (0.83-4.51); Basophil# 0.03 X10^3/uL; Basophil% 0.8 % (0-1); Eosinophil# 0.14 X10^3/uL; Eosinophils% 3.8 % (0-5); Hematocrit 37.8 % (37-47); Hemoglobin 12.5 g/dL (12.0-15.0); Lymphocyte # 1.21 X10^3/ul (0.83-4.51); Lymphocyte % 32.6 % (19-41); Mean Corp Hgb Conc 33.1 g/dL (32-36); Mean Corpuscular Hgb 30.4 pg (27.0-32.0); Mean Platelet Vol. 10.6 fl (6.2-12.0); Monocyte# 0.33 X10^3/uL; Monocyte% 8.9 % (0-10); NRBC Flagged by Analyzer 0 % (0-5); Neutrophil # 1.99 X10^3/uL (2.7-7.7); Neutrophil % 53.6 % (47-70); Platelet Count 193 K/mm3 (150-450); RBC Distribution Width CV 13.5 % (11.6-14.6); Red Blood Count 4.11 M/mm3 (4.2-5.4); White Blood Count 3.7 K/mm3 (4.4-11.0)
[2024-01-27 16:40] LABS: AST(SGOT) 15 U/L (15-37); Alanine Aminotransfer ALT/SGPT 20 U/L (13-56); Albumin, Serum 3.7 g/dL (3.2-5.0); Alkaline Phosphatase 57 U/L (45-117); Anion Gap 6 (5-15); BUN 8 mg/dL (7-18); BUN/Creat Ratio 10.5 RATIO (10-20); Bilirubin, Direct 0.13 mg/dL (0.00-0.30); Calcium,Total 8.6 mg/dL (8.5-10.1); Chloride 107 mmol/L (98-107); Creatinine, Serum 0.76 mg/dL (0.55-1.02); EST Glomerular Filtration Rate 87 mL/min (>60); Est Glom Filt Rate - Afr Amer 105 mL/min (>60); Estimated Creatinine Clearance 97.69 ml/min; Globulin 3.3 g/dL (2.2-4.2); Glucose 81 mg/dL (74-106); Potassium 3.8 mmol/L (3.5-5.1); Sodium Level 137 mmol/L (136-145); Thyroid Stim Hormone (TSH) 3.74 uIU/mL (0.358-3.74)
[2024-01-27 17:01] LABS: Alcohol, Blood (Medical)-Serum < 3.0 mg/dL
[2024-01-27 17:39] VITALS: PULSE 87; RESP 17; O2SAT 100
[2024-01-27 17:47] LABS: Mucous, Urine 0 SEEN /hpf (<or=2+); Red Blood Cells-Urine 0 SEEN /hpf (0-5); White Blood Cells 0 SEEN /hpf (0-5)
[2024-01-27 18:04] LABS: Color, Urine Yellow (Yellow); Glucose, Dipstick Normal (Normal); Ketone-Dipstick Negative (Negative); Leukocyte Esterase-Dipstick Negative /ul (Negative); Nitrite-Dipstick Negative (Negative); Occult Blood-Urine Negative /ul (Negative); Protein-Dipstick Negative (Negative); Specific Gravity, Urine 1.005 (1.002-1.030); Urine Bilirubin Dipstick Negative (Negative); Urine Clarity Clear (Clear); Urine Urobilinogen Normal (Normal)
[2024-01-27 18:09] VITALS: BP 107/67; PULSE 54; RESP 20; TEMP 36.9; O2SAT 100
[2024-01-27 18:17] LABS: Bacteria RARE /hpf (None Seen); Squamous Epithelial Cells - UA 0-5 SEEN /hpf (5-10)
--- NOTE | 2024-01-27 18:17 | ED.RN ---
CRISIS CALLED TO MAKE THEM AWARE PT WILL NEED EVALUATED AT 1730. FAXED OVER MEDICAL CLEARANCE. ALIX FROM CRISIS CALLED BACK AT 181 TO LET US KNOW SHE RECIVED EVERYTHING, AND WOULD BE OVER SOON SHE COULD.
[2024-01-27 18:21] LABS: Internal QC Validated? YES +Cl - CLEAR BKGD; Pregnancy, Urine Negative Negative
[2024-01-27 18:23] LABS: Amphetamine Urine VISTA NEGATIVE (<1000 ng/mL); Barbiturate Urine VISTA NEGATIVE (< 200 ng/mL); Benzodiazepine Urine VISTA NEGATIVE (< 200 ng/mL); Cocaine Urine VISTA NEGATIVE (< 300 ng/mL); Ecstacy Urine VISTA NEGATIVE (< 500 ng/mL); Methadone Urine VISTA NEGATIVE (< 300 ng/mL); PCP Urine VISTA NEGATIVE (< 25 ng/mL); THC Urine VISTA NEGATIVE (< 50 ng/mL); Vista UDS pH Range 7
[2024-01-27 20:14] VITALS: PULSE 85; RESP 17; O2SAT 97
--- NOTE | 2024-01-27 21:12 | ED.RN ---
MARIANO FROM CRISIS CALLED AND REQUESTED TOX SCREEN FOR PT. FAXED OVER.
--- NOTE | 2024-01-27 21:46 | ED.RN ---
ALIX WITH CRISIS CALLED, PT REFERRED TO [facility]
[2024-01-27 22:28] VITALS: BP 100/60; PULSE 57; RESP 17; O2SAT 100
--- NOTE | 2024-01-27 22:46 | ED.RN ---
pt accepted at [facility], [place] [address] lewis n2n [phone] squad eta with physicians 1300 01/28/24
[2024-01-28 00:43] VITALS: RESP 14
[2024-01-28 02:00] VITALS: BP 114/79; PULSE 59; RESP 18; O2SAT 97
[2024-01-28 04:00] VITALS: BP 110/67; PULSE 57; RESP 16; O2SAT 97
[2024-01-28 06:00] VITALS: BP 97/56; PULSE 58; RESP 16; O2SAT 98
[2024-01-28 08:12] VITALS: BP 93/62; PULSE 60; RESP 16; TEMP 36.7; O2SAT 99
[2024-01-28 09:36] VITALS: BP 93/62; PULSE 60; RESP 16; TEMP 36.7; O2SAT 99
== END 2024-01-28 09:30 ==
PROVIDERS: Emergency Provider Emergency Medicine; Visit Provider Emergency Medicine
DX: F32.A Depression, unspecified (principal); F17.200 Nicotine dependence, unspecified, uncomplicated; R44.0 Auditory hallucinations; Z59.01 Sheltered homelessness; Z79.899 Other long term (current) drug therapy; Z91.51 Personal history of suicidal behavior; Z59.6 Low income; Z63.8 Other specified problems related to primary support group; Z62.810 Personal history of physical and sexual abuse in childhood; Z91.410 Personal history of adult physical and sexual abuse
CPT/HCPCS: 36415; 70450; 80048; 80076; 80307; 80320; 81001; 81025; 84443; 85025; 93005; 99285; G0480

== ENCOUNTER 2025-03-19 09:54 | Emergency (ER) | payer BC, MEDICAID, SELFPAY ==
[2025-03-19 09:55] VITALS: BP 114/66; PULSE 72; RESP 16; TEMP 36.7; O2SAT 100; BMI 32.8
--- NOTE | 2025-03-19 10:37 | ED.VIS.GI ---
HPI <ALIDA Lai - Last Filed: 03/19/25 14:57> HPI - GI History of Present Illness Chief Complaint: Abd Pain Narrative Narrative: Patient presenting today with periumbilical abdominal pain she has had over the last few weeks. Reports that the pain is constant, waxing and waning. It seems to hurt worse with certain movements. She has not yet seen her PCP for this. She denies associated fevers, chills, nausea, vomiting, diarrhea, constipation, melena, and urinary symptoms. Additionally, she reports a rash to her abdomen that started 2 days ago, however, she reports that the rash has resolved and is no longer there. [facility] <ALIDA Lai - Last Filed: 03/19/25 14:57> [facility] Medical History Anxiety Arthritis PTSD (post-traumatic stress disorder) Home Medications ?Medication ?Instructions ?Recorded ?Last Taken ?Type cyanocobalamin (vitamin B-12) 1,000 mcg PO DAILY 01/27/24 03/19/25 History 1,000 mcg tablet magnesium oxide 250 mg PO DAILY 01/27/24 03/19/25 History omeprazole 40 mg capsule,delayed 40 mg PO DAILY 01/27/24 03/19/25 History release pregabalin 100 mg capsule 100 mg PO Q12H 01/27/24 03/19/25 History topiramate 200 mg tablet 200 mg PO QHS 01/27/24 03/18/25 History dicyclomine 20 mg tablet 20 mg PO TID 7 days #21 tabs 03/19/25 Unknown Rx duloxetine 30 mg capsule,delayed 30 mg PO DAILY 03/19/25 03/19/25 History release (Cymbalta) duloxetine 60 mg capsule,delayed 60 mg PO DAILY 03/19/25 03/19/25 History release (Cymbalta) lorazepam 1 mg tablet (Ativan) 1 mg PO TID 03/19/25 03/19/25 History naltrexone 50 mg tablet 50 mg PO DAILY 03/19/25 03/19/25 History olanzapine 2.5 mg tablet 1.25 mg PO QHS 03/19/25 03/18/25 History olanzapine 5 mg tablet 5 mg PO DAILY anxiety 03/19/25 Unknown History prazosin 1 mg capsule 1 mg PO QHS 03/19/25 03/18/25 History trazodone 100 mg tablet 200 mg PO QHS 03/19/25 03/18/25 History Allergy/AdvReac Type Severity Reaction Status Date / Time lactose Allergy Upset Verified 03/19/25 09:55 Stomach Surgical History H/O foot surgery Social History household members: significant other Smoking Status: Light Smoker (<10/day) details: Not recently. substance use type: marijuana and methamphetamine ROS <ALIDA Lai - Last Filed: 03/19/25 14:57> ROS ED Constitutional Constitutional ED: Denies chills or fever(s) Cardiovascular Cardiovascular: Denies chest pain Respiratory/Chest Respiratory/Chest: Denies dyspnea Gastrointestinal Gastrointestinal: Reports abdominal pain; Denies constipation, diarrhea, melena, nausea or vomiting Genitourinary Genitourinary ED: Denies dysuria, hematuria or urinary urgency Musculoskeletal Musculoskeletal: Denies arthralgias or myalgias Integumentary Reports rash Neurologic Neurologic: Denies weakness EXAM <ALIDA Lai - Last Filed: 03/19/25 14:57> Physical Exam Const Vital Signs: 03/19/25 09:55 03/19/25 11:55 03/19/25 13:00 Temperature 98.0 F Temperature Source Oral Pulse Rate 72 78 78 Respiratory Rate 16 16 16 Blood Pressure 114/66 116/70 113/70 Blood Pressure Mean 82 85 84 Pulse Ox 100 98 99 Oxygen Delivery Method Room Air Room Air Room Air 03/19/25 13:42 Temperature 98 F Temperature Source Pulse Rate 65 Respiratory Rate 14 Blood Pressure 116/82 H Blood Pressure Mean 93 Pulse Ox 100 Oxygen Delivery Method Positive well nourished, well developed and no apparent distress General Appearance ED: well developed HEENT Reports normocephalic and head/scalp atraumatic Mouth ED: Yes moist mucous membranes normal Eyes PERRL and EOMs intact bilaterally Neck full ROM and supple Chest Wall inspection of chest normal Resp normal respiratory effort and clear to auscultation bilaterally Cardio regular rate and regular rhythm GI soft to palpation, non-distended and no masses GI Narrative: Minimal lower abdominal tenderness to palpation, no rigidity or guarding Back/Spine normal ROM and normal to inspection Extremity normal to inspection and full ROM Neuro oriented x3, CN's II-XII intact bilaterally, moves all extremities, no focal motor deficits and no sensory deficits noted Sensorium / Orientation: awake and alert Psych mental status grossly normal and thought process normal Skin no wounds Skin Narrative: No rash noted to the abdomen, there are a few papules scattered across the chest, no fluctuance or signs of infection <Dr. Damon Munguia DO - Last Filed: 03/19/25 15:10> Physical Exam Const Vital Signs: 03/19/25 09:55 03/19/25 11:55 03/19/25 13:00 Temperature 98.0 F Temperature Source Oral Pulse Rate 72 78 78 Respiratory Rate 16 16 16 Blood Pressure 114/66 116/70 113/70 Blood Pressure Mean 82 85 84 Pulse Ox 100 98 99 Oxygen Delivery Method Room Air Room Air Room Air 03/19/25 13:42 Temperature 98 F Temperature Source Pulse Rate 65 Respiratory Rate 14 Blood Pressure 116/82 H Blood Pressure Mean 93 Pulse Ox 100 Oxygen Delivery Method MDM <ALIDA Lai - Last Filed: 03/19/25 14:57> [facility] Narrative Medical decision making narrative: Patient presenting today with periumbilical abdominal pain she has had for the last several weeks. Reports that her pain is primarily with movement, when sitting up in the bed she has exacerbation of her pain. Suspect an abdominal wall strain. Her abdominal exam is relatively benign, she has a nonsurgical abdomen with minimal tenderness across her lower belly. Labs obtained, her CBC, CMP, lipase, UA, and urine hCG are unremarkable. I do not feel emergent abdominal imaging is indicated at this time. I will refer her to GI. She was given Toradol here for pain and did have some improvement of her symptoms. I will give her a prescription for Bentyl. Additionally she reported a rash to her abdominal region 2 days ago, there was no rash on my exam, she had a few papules on her chest. Reports that her rash resolved. She will be discharged home in stable condition. Lab Data Attestation: I reviewed the patient's lab results. Labs: Laboratory Results - last 24 hr 03/19/25 03/19/25 10:40 12:00 WBC 6.4 RBC 3.86 L Hgb 12.0 Hct 36.1 L MCV 93.5 MCH 31.1 MCHC 33.2 RDW Std Deviation 43.6 RDW Coeff of [place] 12.8 Plt Count 197 MPV 10.7 Immature Gran % (Auto) 0.500 Neut % (Auto) 72.3 H Lymph % (Auto) 18.5 L [place] % (Auto) 6.4 Eos % (Auto) 2.0 Baso % (Auto) 0.3 Absolute Neuts (auto) 4.6 Absolute Lymphs (auto) 1.19 Nucleated RBC % 0 Sodium 141 Potassium 4.1 Chloride 108 Carbon Dioxide 23.0 Anion Gap 9 BUN 14 Creatinine 0.97 Estim Creat Clear Calc 91.52 Est GFR (MDRD) Non-Af 73 BUN/Creatinine Ratio 14.4 Glucose 98 Calcium 9.3 Total Bilirubin 0.28 AST 22 ALT 14 Alkaline Phosphatase 57 Total Protein 6.7 Albumin 4.2 Globulin 2.5 Albumin/Globulin Ratio 1.7 Lipase 36 Urine Color Straw Urine Clarity Clear Urine pH 7.0 Ur Specific [place] 1.010 Urine Protein Negative Urine Glucose (UA) Normal Urine Ketones Negative Urine Occult Blood Negative Urine Nitrite Negative Urine Bilirubin Negative Urine Urobilinogen Normal Ur Leukocyte Esterase Negative Urine RBC 0 SEEN Urine WBC 0 SEEN Ur Squamous Epith Cells 0-5 SEEN Urine Bacteria 0 SEEN Urine Mucus 0 SEEN Urine Test Negative <Dr. Damon Munguia, DO - Last Filed: 03/19/25 15:10> MDM History & Record Review Discussion w/independent historian: Patient Additional record(s) reviewed:: Prior ED visit and Prior labs Lab Data Labs: Laboratory Results - last 24 hr 03/19/25 03/19/25 10:40 12:00 WBC 6.4 RBC 3.86 L Hgb 12.0 Hct 36.1 L MCV 93.5 MCH 31.1 MCHC 33.2 RDW Std Deviation 43.6 RDW Coeff of [place] 12.8 Plt Count 197 MPV 10.7 Immature Gran % (Auto) 0.500 Neut % (Auto) 72.3 H Lymph % (Auto) 18.5 L [place] % (Auto) 6.4 Eos % (Auto) 2.0 Baso % (Auto) 0.3 Absolute Neuts (auto) 4.6 Absolute Lymphs (auto) 1.19 Nucleated RBC % 0 Sodium 141 Potassium 4.1 Chloride 108 Carbon Dioxide 23.0 Anion Gap 9 BUN 14 Creatinine 0.97 Estim Creat Clear Calc 91.52 Est GFR (MDRD) Non-Af 73 BUN/Creatinine Ratio 14.4 Glucose 98 Calcium 9.3 Total Bilirubin 0.28 AST 22 ALT 14 Alkaline Phosphatase 57 Total Protein 6.7 Albumin 4.2 Globulin 2.5 Albumin/Globulin Ratio 1.7 Lipase 36 Urine Color Straw Urine Clarity Clear Urine pH 7.0 Ur Specific [place] 1.010 Urine Protein Negative Urine Glucose (UA) Normal Urine Ketones Negative Urine Occult Blood Negative Urine Nitrite Negative Urine Bilirubin Negative Urine Urobilinogen Normal Ur Leukocyte Esterase Negative Urine RBC 0 SEEN Urine WBC 0 SEEN Ur Squamous Epith Cells 0-5 SEEN Urine Bacteria 0 SEEN Urine Mucus 0 SEEN Urine Test Negative Treatment and Re-Evaluation :: I have personally performed a face to face assessment of the patient and have reviewed the KATHY Note. I performed a substantive portion of the visit including all aspects of the following. My gar findings include: History is 44-year-old female reports a multiweek history of pain across the mid abdomen bilaterally. She states that she had a rash over the past couple days which is now resolved. She states that she is urinating normally and defecating normally. Exam is abdomen is soft nontender nondistended normal bowel sounds I do not appreciate a rash patient is in no acute distress resting comfortably in the bed Medical Decison Making basic blood work was obtained and is negative. Urinalysis shows no overt infection. Patient is not . Patient is can be discharged home. She states her doctor whom she has not seen in years is in [place] I recommend that she establish local care. If she is not improving she can return to emergency she notes understanding of this. Discharge Plan Triage Chief Complaint: Abd Pain ED Midlevel Provider: Kelley Klein ED Provider: Damon Munguia Dx/Rx/DC Orders Clinical Impression: Abdominal pain Instructions: Abdominal Pain Prescriptions: New dicyclomine 20 mg tablet 20 mg PO TID 7 Days Qty: 21 0RF No Action topiramate 200 mg tablet 200 mg PO QHS Patient Comments: Take 1 tablet by mouth daily at bedtime. cyanocobalamin (vitamin B-12) 1,000 mcg tablet 1,000 mcg PO DAILY Patient Comments: Take 1 tablet by mouth once daily. pregabalin 100 mg capsule 100 mg PO Q12H omeprazole 40 mg capsule,delayed release(DR/EC) 40 mg PO DAILY Patient Comments: Take 1 capsule by mouth once daily. magnesium oxide 250 mg magnesium tablet 250 mg PO DAILY Patient Comments: Take 1 tablet by mouth once daily. lorazepam [Ativan] 1 mg tablet 1 mg PO TID olanzapine 5 mg tablet 5 mg PO DAILY duloxetine [Cymbalta] 30 mg capsule,delayed release(DR/EC) 30 mg PO DAILY Rx Instructions: WITH 60MG FOR TOTAL DAILY DOSE OF 90MG duloxetine [Cymbalta] 60 mg capsule,delayed release(DR/EC) 60 mg PO DAILY Rx Instructions: WITH 30MG FOR TOTAL DAILY DOSE OF 90MG olanzapine 2.5 mg tablet 1.25 mg PO QHS naltrexone 50 mg tablet 50 mg PO DAILY trazodone 100 mg tablet 200 mg PO QHS prazosin 1 mg capsule 1 mg PO QHS Primary Care Provider: ALIX BRUCE Referrals: Friend,Jaylen, [Med Staff - Active Staff] - 1 Week Care Physician,No Primary [Non-Staff] - Activity Restrictions/Additional Instructions: Follow-up with GI and return for any worsening symptoms. If you do not have a PCP, you can follow-up with the [facility] [phone] Print Language: Georgian Disposition Disposition: Home, Self Care Discharge Date/Time: 03/19/25 13:43
[2025-03-19 10:51] LABS: Absolute Lymphocyte Count 1.19 X10^3/uL (0.83-4.51); Absolute Neutrophil Count 4.6 X10^3/uL (2.0-7.7); Basophil# 0.02 X10^3/uL; Basophil% 0.3 % (0-1); Eosinophil# 0.13 X10^3/uL; Hematocrit 36.1 % (37-47); Lymphocyte # 1.19 X10^3/ul (0.83-4.51); Lymphocyte % 18.5 % (19-41); Mean Corp Hgb Conc 33.2 g/dL (32-36); Mean Corpuscular Hgb 31.1 pg (27.0-32.0); Mean Corpuscular Volume 93.5 fL (81-99); Mean Platelet Vol. 10.7 fl (6.2-12.0); Monocyte# 0.41 X10^3/uL; Monocyte% 6.4 % (0-10); NRBC Flagged by Analyzer 0 % (0-5); Neutrophil # 4.64 X10^3/uL (2.7-7.7); Neutrophil % 72.3 % (47-70); Platelet Count 197 K/mm3 (150-450); RBC Distribution Width CV 12.8 % (11.6-14.6); RBC Distribution Width SD 43.6 fl (35.1-43.9); Red Blood Count 3.86 M/mm3 (4.2-5.4); White Blood Count 6.4 K/mm3 (4.4-11.0)
[2025-03-19] MEDS: Ketorolac 15 MG/ML Vial IV (10:53)
[2025-03-19 11:19] LABS: ALB/GLOB Ratio 1.7 RATIO (0.9-2.4); AST(SGOT) 22 U/L (<=31); Alanine Aminotransfer ALT/SGPT 14 U/L (<=34); Albumin, Serum 4.2 g/dL (3.5-5.0); Alkaline Phosphatase 57 U/L (35-104); Anion Gap 9 (5-15); BUN 14 mg/dL (4-19); BUN/Creat Ratio 14.4 RATIO (10-20); Calcium,Total 9.3 mg/dL (7.6-11.0); Chloride 108 mmol/L (98-108); Creatinine, Serum 0.97 mg/dL (0.70-1.20); EST Glomerular Filtration Rate 73 (>60); Estimated Creatinine Clearance 91.52 ml/min (50-250); Globulin 2.5 g/dL (2.2-4.2); Glucose 98 mg/dL (70-99); Lipase 36 U/L (13-75); Potassium 4.1 mmol/L (3.3-5.1); Protein, Total 6.7 g/dL (5.9-8.4); Sodium Level 141 mmol/L (133-145); Total Bilirubin 0.28 mg/dL (0.00-1.30)
[2025-03-19 11:55] VITALS: BP 116/70; PULSE 78; RESP 16; O2SAT 98
[2025-03-19 12:08] LABS: Bacteria 0 SEEN /hpf (None Seen); Mucous, Urine 0 SEEN /hpf (<or=2+); Red Blood Cells-Urine 0 SEEN /hpf (0-5); White Blood Cells 0 SEEN /hpf (0-5)
[2025-03-19 12:14] LABS: Color, Urine Straw (Yellow); Glucose, Dipstick Normal (Normal); Ketone-Dipstick Negative (Negative); Leukocyte Esterase-Dipstick Negative /ul (Negative); Nitrite-Dipstick Negative (Negative); Occult Blood-Urine Negative /ul (Negative); Protein-Dipstick Negative (Negative); Urine Bilirubin Dipstick Negative (Negative); Urine Clarity Clear (Clear); Urine Urobilinogen Normal (Normal)
[2025-03-19 12:20] LABS: Squamous Epithelial Cells - UA 0-5 SEEN /hpf (5-10)
[2025-03-19 12:21] LABS: Internal QC Validated? YES +Cl - CLEAR BKGD; Pregnancy, Urine Negative Negative
[2025-03-19 13:00] VITALS: BP 113/70; PULSE 78; RESP 16; O2SAT 99
[2025-03-19 13:42] VITALS: BP 116/82; PULSE 65; RESP 14; TEMP 36.6; O2SAT 100
== END 2025-03-19 13:43 | disposition home or self-care (01) ==
PROVIDERS: Physician Assistant; Emergency Provider Emergency Medicine; Visit Provider Emergency Medicine
DX: R10.33 Periumbilical pain (principal); F17.200 Nicotine dependence, unspecified, uncomplicated
CPT/HCPCS: 80053; 81001; 81025; 83690; 85025; 96374; 99283; A4216

== ENCOUNTER → 2025-04-02 | Outpatient (CLI) | payer BC, SELFPAY ==
[2025-04-02 12:33] LABS: Absolute Lymphocyte Count 1.01 X10^3/uL (0.83-4.51); Absolute Neutrophil Count 3.9 X10^3/uL (2.0-7.7); Basophil# 0.09 X10^3/uL; Basophil% 1.6 % (0-1); Eosinophil# 0.08 X10^3/uL; Eosinophils% 1.5 % (0-5); Hematocrit 35.9 % (37-47); Hemoglobin 12.1 g/dL (12.0-15.0); Lymphocyte # 1.01 X10^3/ul (0.83-4.51); Lymphocyte % 18.5 % (19-41); Mean Corp Hgb Conc 33.7 g/dL (32-36); Mean Corpuscular Hgb 31.5 pg (27.0-32.0); Mean Corpuscular Volume 93.5 fL (81-99); Monocyte# 0.35 X10^3/uL; Monocyte% 6.4 % (0-10); NRBC Flagged by Analyzer 0 % (0-5); Neutrophil # 3.92 X10^3/uL (2.7-7.7); Neutrophil % 71.6 % (47-70); Platelet Count 242 K/mm3 (150-450); RBC Distribution Width SD 44.4 fl (35.1-43.9); Red Blood Count 3.84 M/mm3 (4.2-5.4); White Blood Count 5.5 K/mm3 (4.4-11.0)
[2025-04-02 13:02] LABS: ALB/GLOB Ratio 1.6 RATIO (0.9-2.4); AST(SGOT) 20 U/L (<=31); Alanine Aminotransfer ALT/SGPT 9 U/L (<=34); Albumin, Serum 4.3 g/dL (3.5-5.0); Alkaline Phosphatase 54 U/L (35-104); Anion Gap 10 (5-15); BUN 16 mg/dL (4-19); Carbon Dioxide 21.5 mmol/L (21.0-32.0); Chloride 106 mmol/L (98-108); Cholesterol 221 mg/dL (<=200); Creatinine, Serum 1.09 mg/dL (0.70-1.20); EST Glomerular Filtration Rate 63 (>60); Globulin 2.7 g/dL (2.2-4.2); Glucose 91 mg/dL (70-99); High Density Lipoprotein 46 mg/dL; Low Density Lipoprotein Calc. 147 mg/dL; Potassium 4.3 mmol/L (3.3-5.1); Sodium Level 137 mmol/L (133-145); Total Bilirubin 0.38 mg/dL (0.00-1.30); Triglycerides 141 mg/dL; Very Low Density Lipoprotein 28 mg/dL (5-40); cholesterol:hdl ratio screen 4.81
== END | disposition home or self-care (01) ==
LOC: VSLAB 10:45
PROVIDERS: PCP Family Medicine; Visit Provider Family Medicine
DX: Z00.00 Encounter for general adult medical examination without abnormal findings (principal); Z13.6 Encounter for screening for cardiovascular disorders
CPT/HCPCS: 36415; 80053; 80061; 83036; 84443; 85025